=== PATIENT | female | born 1975 | race Caucasian/White ===

== ENCOUNTER 2022-04-06 20:06 | Inpatient (IN) | payer MEDICAID, OTHER, SELFPAY ==
--- NOTE | ~2022-04-06 | US_ITS ---
EXAMINATION: US ABDOMEN LIMITED CLINICAL INFORMATION: Right upper quadrant pain. COMPARISON: None TECHNIQUE: Real-time imaging of the right upper quadrant abdominal viscera. FINDINGS: PANCREAS: The head is obscured by overlying bowel gas. The body and tail appear unremarkable. No. Pancreatic inflammatory change. LIVER: There is somewhat heterogeneous and increased echogenicity consistent with hepatocellular disease and question cirrhosis. No focal hepatic lesion. There is no intrahepatic biliary duct dilatation seen. GALLBLADDER: Cholelithiasis is present without evidence of acute cholecystitis. No gallbladder wall thickening or pericholecystic fluid identified. No tenderness to palpation over the gallbladder was elicited. COMMON BILE DUCT: Common bile duct was not identified. RIGHT KIDNEY: Normal. No hydronephrosis. No renal calculi or focal parenchymal lesions. The kidney measures 14.5 cm in maximum dimension. FREE FLUID: None. US/US abdomen limited IMPRESSION: Cholelithiasis without evidence of acute cholecystitis. Hepatocellular disease.
[2022-04-06 20:23] VITALS: BP 187/82; PULSE 101; RESP 20; TEMP 36.6; O2SAT 98; BMI 34.3
[2022-04-06] MEDS: LORazepam 1 MG TABLET 2 MG PO (21:07)
--- NOTE | 2022-04-06 21:14 | PC.NURSE ---
Care team reports pt does not need a smart sheet completed.
[2022-04-06 21:21] LABS: Appearance Urine Clear; Color Urine Yellow; Glucose Urine UA Negative (Negative); Leukocyte Esterase Urine Negative (Negative); Nitrite Urine Negative (Negative); Specific Gravity - Urine <= 1.005 (1.005-1.025); UMIC TRIGGER UACC YES; Urine Blood Small (1+) (Negative); Urine Ketones Negative (Negative); Urine Protein Negative (Neg-Trace)
[2022-04-06 21:22] LABS: MANUAL DIFF FLAG NO
[2022-04-06 21:25] LABS: COVID-19 Test Negative (Negative); IDNOW Serial# BCCEAD1C
--- NOTE | 2022-04-06 21:31 | ED.PSYCH ---
HPI - Psych General Chief Complaint: Psychiatric Symptoms Stated Complaint: Alcohol detox Time Seen by Provider: 04/06/22 21:02 Source: patient Mode of arrival: ambulatory Limitations: no limitations History of Present Illness HPI Narrative: This is a 47-year-old female past medical history significant for hepatitis, anxiety, depression, alcohol use disorder presenting to the emergency department with concerns of feeling tired, agitated, suicidal with plan that she does not want to disclose, patient tells me she wants to sleep forever not wake up. She tells me she has been sleeping all day every day. She tells me she has been feeling this way for half of the year. Reports that she is homeless and is having significant life stressors including family issues she reports that her family does not speak to her, she does not have a support system in nobody did talk to. She tells me she was a heavy drinker before and now she is trying to cut down she is drinking 4-5 beers a day last drink was a few days ago. She denies any drugs or tobacco. She endorses visual hallucinations reports seeing shadows and she is also endorsing that she is hearing voices however unable to tell me exactly what they are saying. She tells me when she stops drinking she feels like she is shaking in agitated, no history of alcohol withdrawal seizures. Patient denies any medical complaints at this time. Related Data Allergies Allergy/AdvReac Type Severity Reaction Status Date / Time No Known Allergies Allergy Verified 04/06/22 20:28 Review of Systems Review of Systems: Constitutional : No Weight loss, No Fever, No Chills, No Fatigue, No Malaise, + tremors ENT/Mouth : No sore throat, No Rhinorrhea Eyes: No Eye Pain, No Swelling, No Redness Cardiovascular : No Chest Pain, No SOB, No Dyspnea on Exertion, No Orthopnea, No Edema, No Palpitations Respiratory : No Cough, No Sputum, No Wheezing Gastrointestinal : No Nausea, No Vomiting, No Diarrhea, No Constipation, No abdominal Pain, No Hematochezia, No Melena Genitourinary : No Dysuria, No Urinary Frequency, No Hematuria, Musculoskeletal : No joint pain, No Myalgias, No Joint Swelling Skin : No Skin Lesions, No rash Neuro : No Weakness, No Numbness, No Dizziness, No Headache Psych : + Anxiety/Panic, + Depression, + SI All other systems reviewed and are negative Yes all other systems are reviewed and are negative [facility] Past Medical History Attestation statement: The following information was validated with the patient. Source: old records reviewed and nursing notes reviewed Social History Social History Alcohol intake: current Alcohol intake frequency: 3 or more drinks per day Smoked in Last 30 Days: No Use of substances other than those prescribed or required for medical reasons: No Advance Directives: No Patient : No Physical Exam Vital Signs: Vital Signs: Last Vital Signs Temp 98 F 04/06/22 20:23 Pulse 101 H 04/06/22 20:23 Resp 20 04/06/22 20:23 BP 187/82 H 04/06/22 20:23 Pulse Ox 98 04/06/22 20:23 O2 Del Method 04/06/22 20:23 BMI result Body Mass Index 34.3 Vital signs significant for tachycardia, hypertension. Appearance: Alert.? Oriented X3.? No acute distress.? Patient appears anxious, diaphoretic. Head: Normocephalic, atraumatic, no step-offs or deformities Eyes: Pupils equal, round and reactive to light.? ENT: Pharynx normal.? Patient with tongue fasciculations. Neck: Normal inspection.? Neck supple.? CVS: Rapid rate normal rhythm likely sinus tachycardia.? Pulses normal.? Respiratory: No respiratory distress.? Breath sounds normal.? Abdomen: Soft and nontender.? Skin: Skin warm and dry.? Normal skin color.? Normal skin turgor.? Extremities: No lower extremity edema.? No calf ttp. 5/5 strength to bilateral upper and lower extremities. Asterixis noted to bilateral upper extremities. Back: No midline tenderness, no C-spine tenderness, full range of motion, no CVA tenderness bilaterally Neuro: Oriented X 3.? No motor deficit.? No sensory deficit. CN 2-12 intact Patient with a CIWA score of 14. Course Reevaluation(s) Reevaluation #1: CBC appears to be around normal limits, slight normocytic anemia. Patient is noted to have an elevated bilirubin 5.9 however no tenderness to palpation of abdomen on exam likely alcoholic liver disease or cirrhosis. Albumin low. Chemistry with no acute electrolyte abnormalities requiring intervention. UA clean without infection. Patient is noted to have a clean urine toxicology however ethanol level 372. Time: 22:01 Reevaluation #2: Spoke to hospitalist who will admit this patient for further evaluation and treatment. Time: 22:02 Medications Administered Discontinued Medications Generic Name Dose Route Start Last Admin Trade Name Esteban PRN Reason Stop Dose Admin Lorazepam 2 mg 04/06/22 21:02 04/06/22 21:07 Lorazepam 1 Mg Tablet PO 04/06/22 21:03 2 mg ONCE ONE Administration MDM - Psych MDM Narrative Medical decision making narrative: 2133 47-year-old female presents with anxiety, depression, suicidal ideation and alcohol withdrawal. Last drink few days ago. Physical examination patient appears anxious, diaphoretic, upper extremity asterixis, tongue fasciculations. Regular rate fast rhythm. Lungs clear. Abdomen soft nontender nondistended. Neuro nonfocal. Patient is noted to be hypertensive, tachycardic. Concerns for acute alcohol withdrawal with autonomic dysfunction. Given 2 mg of p.o. Ativan S immediately. Patient will be pulled from the behavioral pot and brought into the main emergency department as she will require phenobarbital for management of symptoms. Will obtain basic labs, CAMPBELL, ethanol level. Medical Records Attestation: I reviewed the patient's medical records. Lab Data Attestation: I reviewed the patient's lab results. Result diagrams: 04/06/22 21:18 04/06/22 21:18 Labs: Lab Results 04/06/22 04/06/22 04/06/22 Range/Units 21:05 21:05 21:05 WBC (4.8-10.8) X10*3/uL RBC (4.20-5.50) X10*6/uL Hgb (12.0-16.0) g/dl Hct (37.0-47.0) % MCV (80.0-98.0) fL MCH (27.0-33.0) pg MCHC (31.0-35.0) g/dl RDW (11.0-16.0) % Plt Count (160-400) X10*3/uL MPV (9.4-12.3) fL Immature Gran % (Auto) (0.0-0.4) % Neut % (Auto) (45-73) % Lymph % (Auto) (20-40) % [place] % (Auto) (2-11) % Eos % (Auto) (0-4) % Baso % (Auto) (0-2) % Lymph # (Auto) (1.2-4.9) X10*3/uL [place] # (Auto) (0.1-1.2) X10*3/uL Eos # (Auto) (0.0-0.4) X10*3/uL Baso # (Auto) (0.0-0.2) X10*3/uL Abs Immat Gran (auto) (0.00-0.03) X10*3/uL Absolute Neuts (auto) (2.0-8.3) x10*3/uL Absolute Nucleated RBC (0.0-0.012) X10*3/uL Nucleated RBC % (auto) (0.0-0.2) /100WBC Sodium (135-145) mmol/L Potassium (3.3-5.1) mmol/L Chloride (96-108) mmol/L Carbon Dioxide (22-29) mmol/L Anion Gap (12-20) BUN (9-16) mg/dL Creatinine (0.5-1.4) mg/dL Estim Creat Clear Calc Estimated GFR Random Glucose (60-115) mg/dL Calcium (8.4-10.2) mg/dL Magnesium (1.6-2.6) mg/dL Total Bilirubin (0.0-1.0) mg/dL AST (5-31) U/L ALT (0-31) U/L Alkaline Phosphatase (39-117) U/L Total Protein (6.5-8.0) g/dL Albumin (3.5-5.0) g/dL Urine Color Yellow Urine Appearance Clear Urine pH 7.0 (5.0-9.0) Ur Specific [place] <= 1.005 (1.005-1.025) Urine Protein Negative (Neg-Trace) mg/dL Urine Glucose (UA) Negative (Negative) mg/dL Urine Ketones Negative (Negative) mg/dL Urine Blood Small (1+) H (Negative) Urine Nitrite Negative (Negative) Ur Leukocyte Esterase Negative (Negative) Urine RBC 0-2 (0-2) /HPF Urine WBC 0-5 (0-5) /HPF Ur Squamous Epith Cells 0-2 (0-2) /HPF Urine Bacteria None Seen (None Seen) Hyaline Casts 0-2 (0-2) /LPF Urine Opiates Screen Not Detected (Not Detect) Urine Fentanyl Screen Not Detected (Not Detect) Ur Barbiturates Screen Not Detected (Not Detect) Ur Phencyclidine Scrn Not Detected (Not Detect) Ur Amphetamines Screen Not Detected (Not Detect) U Benzodiazepines Scrn Not Detected (Not Detect) Urine Cocaine Screen Not Detected (Not Detect) U Marijuana (THC) Screen Not Detected (Not Detect) Ethyl Alcohol mg/dL COVID-19 (SMITH) Negative (Negative) COVID-19 Clin Com See Note 04/06/22 04/06/22 Range/Units 21:18 21:18 WBC 5.8 (4.8-10.8) X10*3/uL RBC 3.52 L (4.20-5.50) X10*6/uL Hgb 11.5 L (12.0-16.0) g/dl Hct 34.4 L (37.0-47.0) % MCV 97.7 (80.0-98.0) fL MCH 32.7 (27.0-33.0) pg MCHC 33.4 (31.0-35.0) g/dl RDW 13.8 (11.0-16.0) % Plt Count 44 L (160-400) X10*3/uL MPV 12.2 (9.4-12.3) fL Immature Gran % (Auto) 0.3 (0.0-0.4) % Neut % (Auto) 55.0 (45-73) % Lymph % (Auto) 32.2 (20-40) % [place] % (Auto) 8.6 (2-11) % Eos % (Auto) 2.4 (0-4) % Baso % (Auto) 1.5 (0-2) % Lymph # (Auto) 1.9 (1.2-4.9) X10*3/uL [place] # (Auto) 0.5 (0.1-1.2) X10*3/uL Eos # (Auto) 0.1 (0.0-0.4) X10*3/uL Baso # (Auto) 0.1 (0.0-0.2) X10*3/uL Abs Immat Gran (auto) 0.02 (0.00-0.03) X10*3/uL Absolute Neuts (auto) 3.2 (2.0-8.3) x10*3/uL Absolute Nucleated RBC 0.000 (0.0-0.012) X10*3/uL Nucleated RBC % (auto) 0.0 (0.0-0.2) /100WBC Sodium 143 (135-145) mmol/L Potassium 3.4 (3.3-5.1) mmol/L Chloride 109 H (96-108) mmol/L Carbon Dioxide 25 (22-29) mmol/L Anion Gap 12 (12-20) BUN < 3 L (9-16) mg/dL Creatinine 0.54 (0.5-1.4) mg/dL Estim Creat Clear Calc 139.0 Estimated GFR > 60 Random Glucose 105 (60-115) mg/dL Calcium 7.5 L (8.4-10.2) mg/dL Magnesium 2.1 (1.6-2.6) mg/dL Total Bilirubin 5.9 H (0.0-1.0) mg/dL AST 97 H (5-31) U/L ALT 9 (0-31) U/L Alkaline Phosphatase 179 H (39-117) U/L Total Protein 7.9 (6.5-8.0) g/dL Albumin 3.0 L (3.5-5.0) g/dL Urine Color Urine Appearance Urine pH (5.0-9.0) Ur Specific [place] (1.005-1.025) Urine Protein (Neg-Trace) mg/dL Urine Glucose (UA) (Negative) mg/dL Urine Ketones (Negative) mg/dL Urine Blood (Negative) Urine Nitrite (Negative) Ur Leukocyte Esterase (Negative) Urine RBC (0-2) /HPF Urine WBC (0-5) /HPF Ur Squamous Epith Cells (0-2) /HPF Urine Bacteria (None Seen) Hyaline Casts (0-2) /LPF Urine Opiates Screen (Not Detect) Urine Fentanyl Screen (Not Detect) Ur Barbiturates Screen (Not Detect) Ur Phencyclidine Scrn (Not Detect) Ur Amphetamines Screen (Not Detect) U Benzodiazepines Scrn (Not Detect) Urine Cocaine Screen (Not Detect) U Marijuana (THC) Screen (Not Detect) Ethyl Alcohol 372 H* mg/dL COVID-19 (SMITH) (Negative) COVID-19 Clin Com Critical Care Time Critical Care Time Critical Care Time: No Discharge Plan Discharge Clinical Impression: Suicidal ideation, Depression, Acute anxiety, Alcohol withdrawal Patient Disposition: Still a Patient
[2022-04-06 21:34] LABS: Amphetamine Screen Urine Not Detected (Not Detect); Barbiturates, Urine Not Detected (Not Detect); Benzodiazepines Screen Urine Not Detected (Not Detect); Cannabinoid Screen Urine Not Detected (Not Detect); Cocaine Screen Urine Not Detected (Not Detect); Fentanyl, urine Not Detected (Not Detect); Opiate Screen Urine Not Detected (Not Detect); Phencyclidine Screen Urine Not Detected (Not Detect)
[2022-04-06 21:35] LABS: Bacteria Urine None Seen (None Seen); Hyaline Casts Urine 0-2 /LPF (0-2); RBC Urine 0-2 /HPF (0-2); Squamous Epithelial Cell Urine 0-2 /HPF (0-2); WBC Urine 0-5 /HPF (0-5)
[2022-04-06 21:35] LABS: Basophils Absolute Auto 0.1 X10*3/uL (0.0-0.2); Basophils Percent Auto 1.5 % (0-2); Eosinophils Absolute Auto 0.1 X10*3/uL (0.0-0.4); Eosinophils Percent Auto 2.4 % (0-4); Hematocrit 34.4 % (37.0-47.0); Hemoglobin 11.5 g/dl (12.0-16.0); Imm Gran Abs Auto 0.02 X10*3/uL (0.00-0.03); Imm Gran Pct Auto 0.3 % (0.0-0.4); Lymphocytes Absolute Auto 1.9 X10*3/uL (1.2-4.9); Lymphocytes Percent Auto 32.2 % (20-40); Mean Corpuscular HGB Conc 33.4 g/dl (31.0-35.0); Mean Corpuscular Hemoglobin 32.7 pg (27.0-33.0); Mean Corpuscular Volume 97.7 fL (80.0-98.0); Monocytes Absolute Auto 0.5 X10*3/uL (0.1-1.2); Monocytes Percent Auto 8.6 % (2-11); Neutrophils Absolute Auto 3.2 x10*3/uL (2.0-8.3); Red Blood Count 3.52 X10*6/uL (4.20-5.50); Red Cell Distribution Width 13.8 % (11.0-16.0); White Blood Count 5.8 X10*3/uL (4.8-10.8)
[2022-04-06 21:42] LABS: Alanine Aminotransferase 9 U/L (0-31); Alkaline Phosphatase 179 U/L (39-117); Anion Gap 12 (12-20); Aspartate Amino Transferase 97 U/L (5-31); Bilirubin Total 5.9 mg/dL (0.0-1.0); Blood Urea Nitrogen < 3 mg/dL (9-16); Calcium 7.5 mg/dL (8.4-10.2); Carbon Dioxide 25 mmol/L (22-29); Chloride 109 mmol/L (96-108); Estimated Glomerular Filt Rate > 60; Ethanol 372 mg/dL; Glucose Random 105 mg/dL (60-115); Magnesium 2.1 mg/dL (1.6-2.6); Potassium 3.4 mmol/L (3.3-5.1); Sodium 143 mmol/L (135-145); Total Protein 7.9 g/dL (6.5-8.0)
[2022-04-06 21:53] LABS: Mean Platelet Volume 12.2 fL (9.4-12.3); Platelet Count 44 X10*3/uL (160-400)
--- NOTE | 2022-04-06 22:01 | ECG_ITS ---
Test Reason : WITHDRAW Blood Pressure : / mmHG Vent. Rate : 079 BPM Atrial Rate : 079 BPM P-R Int : 168 ms QRS Dur : 102 ms QT Int : 434 ms P-R-T Axes : 058 012 024 degrees QTc Int : 497 ms Normal sinus rhythm Prolonged QT Borderline ECG No previous ECGs available Referred By: Mildred Chauhan Electronically Signed By:DINAA AVELAR MD
--- NOTE | 2022-04-06 22:08 | PM.IMHP ---
History of Present Illness Date of Service: 04/06/22 Chief Complaint: alcohol withdrawal, SI 47-year-old Canadian-speaking only female with past medical history of depression, GERD, presents the hospital with suicidal ideation and plan to kill herself with no attempt. Patient reports that she has been feeling very depressed with me family issues. She also has been using alcohol daily, about 6 beers a day. Patient initially was admitted for U evaluation but found to be withdrawing from alcohol therefore will be admitted to medical floor. Patient denies any chest pain, no abdominal pain, no nausea or vomiting, no diarrhea constipation, no urinary symptoms and no lower extremity edema. She reports her last drink was the night before. She reports a history of alcohol withdrawal with no withdrawal seizures. On arrival to the ED patient was documented to have a blood pressure of 187/82 with a heart rate of 101 She was also noted to have tongue fasciculation, asterixis Labs are significant for WBC count of 5.8, hemoglobin of 11.5, hematocrit 34.4, total bili of 5.9- 5.4 in February from records obtained from [facility],, AST of 97, ALT of 9, alk-phos of 179, ammonia of 60 albumin of 3.0, UA negative, UDS negative, alcohol level of 372, COVID-19 negative Abdominal ultrasound pending Review of Systems Review of Systems: Yes all other systems are reviewed and are negative [facility] Medical History (Updated 04/07/22 @ 05:55 by Kong Schwab MD) Alcohol abuse Depression with anxiety GERD (gastroesophageal reflux disease) Family History (Updated 04/07/22 @ 05:51 by Kong Schwab MD) Other No family history of coronary artery disease Surgical History (Updated 04/07/22 @ 05:52 by Kong Schwab MD) History of History of hernia repair Social History (Updated 04/07/22 @ 05:52 by Kong Schwab MD) Alcohol intake: current Alcohol intake frequency: 3 or more drinks per day Patient Tobacco Use Status: Former Tobacco user Smoked in Last 30 Days: No Use of substances other than those prescribed or required for medical reasons: No Advance Directives: No Patient : No Meds Allergies Allergy/AdvReac Type Severity Reaction Status Date / Time No Known Allergies Allergy Verified 04/06/22 20:28 Active Medications: Current Medications Pharmacy Consult (Consult Rx Perform Med Rec) 1 each MISCELLANE ONCE PRN PRN Reason: Consult order Pharmacy Consult (Consult Rx Etoh Phenob Im/Po) 1 each MISCELLANE ONCE PRN; Protocol PRN Reason: Consult order Home Medications Medication Instructions Recorded Confirmed Last Taken Type acamprosate 333 mg tablet,delayed 333 mg PO TID 04/06/22 04/06/22 Unknown History release duloxetine 60 mg capsule,delayed 1 cap PO DAILY 04/06/22 04/06/22 Unknown History release folic acid 1 mg tablet 1 tab PO DAILY 04/06/22 04/06/22 Unknown History multivitamin 1 tab PO DAILY 04/06/22 04/06/22 Unknown History naltrexone microspheres 380 mg 380 mg IM Q28D 04/06/22 04/06/22 Unknown History intramuscular suspension,extended release (Vivitrol) pantoprazole 40 mg tablet,delayed 1 tab PO BID 04/06/22 04/06/22 Unknown History release sucralfate 1 gram tablet 1 tab PO QID 04/06/22 04/06/22 Unknown History thiamine HCl (vitamin B1) 100 mg 100 mg PO DAILY 04/06/22 04/06/22 Unknown History tablet Physical Exam Vital Signs and Narrative: Vital Signs: Last Vital Signs Temp 98 F 04/06/22 20:23 Pulse 101 H 04/06/22 20:23 Resp 20 04/06/22 20:23 BP 187/82 H 04/06/22 20:23 Pulse Ox 98 04/06/22 20:23 O2 Del Method 04/06/22 20:23 BMI result Body Mass Index 34.3 Const: General: cooperative and no acute distress Orientation/consciousness: patient oriented x3 Eyes: Other: Scleral icterus Pupils: Equal, round and reactive pupils present Resp: Effort & Inspection: normal respiratory effort Auscultation: clear to auscultation bilaterally Cardio: Rate: regular rate Rhythm: regular rhythm GI: Other: Abdomen is not distended, soft, no tenderness or rebound Palpation (GI): Soft to palpation Auscultation: normal bowel sounds Skin: Other: Jaundice General skin exam: no rashes or lesions noted Neuro: Other: Alert oriented, cranial nerves 2-12 intact, strength 5/5, has tongue fasciculation and asterixis General: patient oriented x3 Cranial nerves: Yes Equal, round and reactive pupils present Cognition (Neuro): normal cognition Extrem: General: Yes normal to inspection and Yes no pedal edema Results Labs CBC and Chem 7: 04/07/22 05:34 04/06/22 21:18 Labs: Laboratory Results - last 24 hr 04/06/22 04/06/22 04/06/22 21:05 21:05 21:05 MCV MCH MCHC RDW Plt Count MPV Immature Gran % (Auto) Neut % (Auto) Lymph % (Auto) [place] % (Auto) Eos % (Auto) Baso % (Auto) Lymph # (Auto) [place] # (Auto) Eos # (Auto) Baso # (Auto) Abs Immat Gran (auto) Absolute Neuts (auto) Absolute Nucleated RBC Nucleated RBC % (auto) Anion Gap Estim Creat Clear Calc Estimated GFR Random Glucose Calcium Magnesium Total Bilirubin AST ALT Alkaline Phosphatase Total Protein Albumin Urine Color Yellow Urine Appearance Clear Urine pH 7.0 Ur Specific [place] <= 1.005 Urine Protein Negative Urine Glucose (UA) Negative Urine Ketones Negative Urine Blood Small (1+) H Urine Nitrite Negative Ur Leukocyte Esterase Negative Urine RBC 0-2 Urine WBC 0-5 Ur Squamous Epith Cells 0-2 Urine Bacteria None Seen Hyaline Casts 0-2 Urine Opiates Screen Not Detected Urine Fentanyl Screen Not Detected Ur Barbiturates Screen Not Detected Ur Phencyclidine Scrn Not Detected Ur Amphetamines Screen Not Detected U Benzodiazepines Scrn Not Detected Urine Cocaine Screen Not Detected U Marijuana (THC) Screen Not Detected Ethyl Alcohol COVID-19 (SMITH) Negative COVID-19 Clin Com See Note 04/06/22 04/06/22 21:18 21:18 MCV 97.7 MCH 32.7 MCHC 33.4 RDW 13.8 Plt Count 44 L MPV 12.2 Immature Gran % (Auto) 0.3 Neut % (Auto) 55.0 Lymph % (Auto) 32.2 [place] % (Auto) 8.6 Eos % (Auto) 2.4 Baso % (Auto) 1.5 Lymph # (Auto) 1.9 [place] # (Auto) 0.5 Eos # (Auto) 0.1 Baso # (Auto) 0.1 Abs Immat Gran (auto) 0.02 Absolute Neuts (auto) 3.2 Absolute Nucleated RBC 0.000 Nucleated RBC % (auto) 0.0 Anion Gap 12 Estim Creat Clear Calc 139.0 Estimated GFR > 60 Random Glucose 105 Calcium 7.5 L Magnesium 2.1 Total Bilirubin 5.9 H AST 97 H ALT 9 Alkaline Phosphatase 179 H Total Protein 7.9 Albumin 3.0 L Urine Color Urine Appearance Urine pH Ur Specific [place] Urine Protein Urine Glucose (UA) Urine Ketones Urine Blood Urine Nitrite Ur Leukocyte Esterase Urine RBC Urine WBC Ur Squamous Epith Cells Urine Bacteria Hyaline Casts Urine Opiates Screen Urine Fentanyl Screen Ur Barbiturates Screen Ur Phencyclidine Scrn Ur Amphetamines Screen U Benzodiazepines Scrn Urine Cocaine Screen U Marijuana (THC) Screen Ethyl Alcohol 372 H* COVID-19 (SMITH) COVID-19 Clin Com Assessment and Plan (1) Alcohol withdrawal: Status: Acute (2) Depression: Status: Acute (3) Suicidal ideation: Status: Acute (4) Hyperbilirubinemia: Status: Acute (5) Thrombocytopenia: Status: Acute Plan 39-year-old female with past medical history of alcohol abuse, presents to the hospital with complaints of suicidal ideation found to have alcohol withdrawal # alcohol abuse with withdrawal - has a high CIWA score, asterixis, tongue fasciculation - was treated with phenobarb protocol, - thiamine and folic acid # suicidal ideation/severe depression - suicide watch - psych consulted # hyperbilirubinemia - likely secondary to alcohol abuse - will obtain abdominal ultrasound to evaluate for kidney - PT INR to evaluate for any coagulopathy - follow LFTs # thrombocytopenia - likely secondary to underlying liver disease in the setting of alcohol abuse - no acute bleed - follow platelet count - monitor for acute spontaneous bleed DVT prophylaxis: SCDs Given patient's alcohol abuse and withdrawal, also requirement for further workup of liver disease patient require a minimum 2 night inpatient hospital stay for further management and evaluation Quality Stroke Does the patient have a stroke diagnosis?: No VTE Prior VTE?: No VTE Risk Level:: Medical - moderate - high VTE Device Contraindication: Treatment Not Indicated VTE Drug Contraindication: N/A - Med Ordered
--- NOTE | 2022-04-06 22:14 | PHA.MEDREC ---
Pharmacy Consult ? Medication Reconciliation Pharmacy has completed the medication reconciliation. Pt at this time unable to give a clear history, states that she has not taken any oral meds since jan 13 2022. Med list obtained from [facility]
--- NOTE | 2022-04-06 22:15 | MHC.CARE ---
Pt was evaluated by [facility] in the community. Pt was an inpatient bedsearch, however is now medically admitted. Once pt is medically cleared, please consult the CARE Team
[2022-04-06 22:39] VITALS: BP 110/57; PULSE 79; RESP 15; TEMP 37.1; O2SAT 97
[2022-04-06] MEDS: PHENobarbitaL sodium 130 MG/ML IM ONCE 260 MG IM (22:52)
[2022-04-06] MEDS: Lactated Ringers 1,000 ML 100 ML IVCONT (22:53)
[2022-04-06] MEDS: Enoxaparin Sodium 40 MG/0.4 ML SYRINGE SUBCUT (22:56)
[2022-04-07 00:28] LABS: Ammonia 60 umol/L (13-55)
[2022-04-07] MEDS: PHENobarbitaL sodium 130 MG/ML VIAL IM Q3Hx2 197 MG IM ×2 (01:58→04:47)
[2022-04-07 05:39] LABS: Lymphocytes Percent Auto 33.3 % (20-40); Mean Corpuscular HGB Conc 32.7 g/dl (31.0-35.0); PLT CLUMP 1; Red Cell Distribution Width 13.8 % (11.0-16.0); SCAN SMEAR FLAG 1
--- NOTE | 2022-04-07 05:39 | PC.NURSE ---
Pt found with some blood in her mouth in the morning. Pt states this happens every morning and that her doctor said it would happen if she continues to drink alcohol. Bleeding is controlled at this time. Continuing to monitor
[2022-04-07 05:41] LABS: Basophils Absolute Auto 0.1 X10*3/uL (0.0-0.2); Basophils Percent Auto 1.8 % (0-2); Eosinophils Absolute Auto 0.2 X10*3/uL (0.0-0.4); Eosinophils Percent Auto 4.4 % (0-4); Hematocrit 29.4 % (37.0-47.0); Hemoglobin 9.6 g/dl (12.0-16.0); Lymphocytes Absolute Auto 1.5 X10*3/uL (1.2-4.9); Mean Corpuscular Hemoglobin 32.1 pg (27.0-33.0); Mean Corpuscular Volume 98.3 fL (80.0-98.0); Mean Platelet Volume 11.7 fL (9.4-12.3); Monocytes Absolute Auto 0.4 X10*3/uL (0.1-1.2); Monocytes Percent Auto 8.8 % (2-11); Neutrophils Absolute Auto 2.3 x10*3/uL (2.0-8.3); Neutrophils Percent Auto 51.7 % (45-73); Red Blood Count 2.99 X10*6/uL (4.20-5.50); White Blood Count 4.5 X10*3/uL (4.8-10.8)
[2022-04-07 05:42] LABS: MANUAL DIFF FLAG NO; Platelet Count 34 X10*3/uL (160-400)
[2022-04-07 06:00] VITALS: BP 125/71; PULSE 87; RESP 16; O2SAT 94
[2022-04-07 06:05] LABS: Anion Gap 10 (12-20); Blood Urea Nitrogen 3 mg/dL (9-16); Calcium 7.1 mg/dL (8.4-10.2); Carbon Dioxide 24 mmol/L (22-29); Chloride 111 mmol/L (96-108); Creatinine Clr Calc Pharmacy 147.1; Estimated Glomerular Filt Rate > 60; Glucose Random 91 mg/dL (60-115); Potassium 3.2 mmol/L (3.3-5.1); Sodium 142 mmol/L (135-145)
[2022-04-07 06:29] LABS: INTERNATIONAL NORM RATIO 1.8 (0.9-1.1); Prothrombin Time 21.7 SEC (10.0-13.1)
[2022-04-07] MEDS: Folic Acid 1 MG TABLET PO (07:59)
[2022-04-07] MEDS: Potassium Chloride ER 20 MEQ TAB.ER.PRT 40 MEQ PO (07:59)
[2022-04-07] MEDS: Acetaminophen 325 MG TABLET 650 MG PO (07:59)
[2022-04-07] MEDS: Thiamine HCL 100 MG TABLET PO (07:59)
[2022-04-07] MEDS: Sucralfate 1 GM TABLET PO ×3 (08:06→22:05)
[2022-04-07] MEDS: DULoxetine HCl 60 MG CAPSULE.DR PO (08:06)
[2022-04-07] MEDS: Acamprosate Calcium 333 MG TABLET.DR PO ×3 (08:06→22:05)
[2022-04-07] MEDS: Lactated Ringers 1,000 ML 100 ML IVCONT ×2 (08:14→23:55)
--- NOTE | 2022-04-07 08:37 | MHC.CM.PN ---
Patient is admitted to the medical floor with ETOH Withdrawal; once medically cleared for dc, Care Team should be consulted r/t IPLOC bed search secondary to SI. Patient is also homeless. CM has initiated and will follow for dc planning.
--- NOTE | 2022-04-07 09:24 | PC.NURSE ---
awoke to voice and tactile stimuli, resting very soundly when left alone. took ordered po medications without issue, able to sit up and drink on own. no complaints offered during interaction. iv running patent w ordered LR. sitter in place for safety, awaiting inpt bed assignment.
--- NOTE | 2022-04-07 10:04 | P.PNIM_ITS ---
Subjective Subjective Date of Service: 04/07/22 Interval History: being followed for alcohol abuse and withdrawal, and also for suicidal ideation, at present patient feeling better feeling less shaky, denies nausea vomiting, tolerated breakfast, complaining of epigastric pain no other acute issues since admission Review of Systems General no headache no dizziness no fever chills. CVS no chest pain, no palpitation. Respiratory no cough, no sob. Gastrointestinal no nausea, no vomiting, no abdominal pain Review of Systems: Yes all other systems are reviewed and are negative Physical Exam Vital Signs: Vital Signs: Last Vital Signs Temp 98.7 F 04/06/22 22:39 Pulse 87 04/07/22 06:00 Resp 16 04/07/22 06:00 BP 125/71 04/07/22 06:00 Pulse Ox 94 04/07/22 06:00 O2 Del Method 04/07/22 06:00 BMI result Body Mass Index 34.3 Const: Other: General awake alert x3,in no acute distress. Neck supple no JVD. CVS regular rate rhythm, Respiratory lungs clear to auscultation, no respiratory distress, no wheeze, no rhonchi. Gastrointestinal abdomen soft, mild epigastric tenderness, bowel sounds audible, no guarding , no rigidity. Extremities no edema. Neuro nonfocal , noted hand tremors, speech clear. Skin no rash Objective Data Active Medications Acamprosate (Acamprosate Calcium 333 Mg Tablet.) 333 mg PO TID [facility] Last Admin: 04/07/22 08:06 Dose: 333 mg Documented By: NAM Acetaminophen (Acetaminophen 325 Mg Tablet) 650 mg PO Q6H PRN PRN Reason: Pain, Mild (Pain Scale 1-3) Last Admin: 04/07/22 07:59 Dose: 650 mg Documented By: NAM Docusate Sodium (Docusate Sodium 100 Mg Capsule) 100 mg PO DAILY PRN PRN Reason: Constipation Duloxetine HCl (Duloxetine Hcl 60 Mg Capsule.) 60 mg PO DAILY [facility] Last Admin: 04/07/22 08:06 Dose: 60 mg Documented By: NAM Folic Acid (Folic Acid 1 Mg Tablet) 1 mg PO DAILY [facility] Last Admin: 04/07/22 07:59 Dose: 1 mg Documented By: NAM Lactated Ringer's (Lr) 1,000 mls @ 100 mls/hr IVCONT .Q10H [facility] Last Admin: 04/07/22 08:14 Dose: 100 mls/hr Documented By: NAM Omeprazole (Omeprazole 40 Mg Capsule.Dr) 40 mg PO BID@0630,1630 [facility] Ondansetron HCl (Ondansetron Hcl 4 Mg/2 Ml Vial) 4 mg IVPUSH Q8H PRN PRN Reason: Nausea and Vomiting Pharmacy Consult (Consult Rx Perform Med Rec) 1 each MISCELLANE ONCE PRN PRN Reason: Consult order Pharmacy Consult (Consult Rx Etoh Phenob Im/Po) 1 each MISCELLANE ONCE PRN; Protocol PRN Reason: Consult order Phenobarbital (Phenobarbital 15 Mg Tablet) 45 mg PO BID [facility]; Protocol Stop: 04/09/22 09:01 Phenobarbital (Phenobarbital 15 Mg Tablet) 15 mg PO BID [facility]; Protocol Stop: 04/11/22 09:01 Phenobarbital (Phenobarbital 15 Mg Tablet) 15 mg PO DAILY [facility]; Protocol Stop: 04/13/22 09:01 Sodium Chloride (0.9 % Sodium Chloride Flush 3 Ml Syringe) 3 ml IVFLUSH QSHIFT [facility] Last Admin: 04/07/22 06:49 Dose: Not Given Documented By: NAM Non-Admin Reason: Med Not Available Sucralfate (Sucralfate 1 Gm Tablet) 1 gm PO QID [facility] Last Admin: 04/07/22 08:06 Dose: 1 gm Documented By: NAM Thiamine HCl (Thiamine Hcl 100 Mg Tablet) 100 mg PO DAILY [facility] Last Admin: 04/07/22 07:59 Dose: 100 mg Documented By: NAM Labs CBC & Chem 7: 04/07/22 05:34 04/07/22 05:34 Labs: Laboratory Results - last 24 hr 04/06/22 04/06/22 04/06/22 21:05 21:05 21:05 MCV MCH MCHC RDW Plt Count MPV Immature Gran % (Auto) Neut % (Auto) Lymph % (Auto) [place] % (Auto) Eos % (Auto) Baso % (Auto) Lymph # (Auto) [place] # (Auto) Eos # (Auto) Baso # (Auto) Abs Immat Gran (auto) Absolute Neuts (auto) Absolute Nucleated RBC Nucleated RBC % (auto) PT INR Anion Gap Estim Creat Clear Calc Estimated GFR Random Glucose Calcium Magnesium Total Bilirubin AST ALT Alkaline Phosphatase Ammonia Total Protein Albumin Urine Color Yellow Urine Appearance Clear Urine pH 7.0 Ur Specific [place] <= 1.005 Urine Protein Negative Urine Glucose (UA) Negative Urine Ketones Negative Urine Blood Small (1+) H Urine Nitrite Negative Ur Leukocyte Esterase Negative Urine RBC 0-2 Urine WBC 0-5 Ur Squamous Epith Cells 0-2 Urine Bacteria None Seen Hyaline Casts 0-2 Urine Opiates Screen Not Detected Urine Fentanyl Screen Not Detected Ur Barbiturates Screen Not Detected Ur Phencyclidine Scrn Not Detected Ur Amphetamines Screen Not Detected U Benzodiazepines Scrn Not Detected Urine Cocaine Screen Not Detected U Marijuana (THC) Screen Not Detected Ethyl Alcohol COVID-19 (SMITH) Negative COVID-19 [employer] Com See Note 04/06/22 04/06/22 04/07/22 21:18 21:18 00:06 MCV 97.7 MCH 32.7 MCHC 33.4 RDW 13.8 Plt Count 44 L MPV 12.2 Immature Gran % (Auto) 0.3 Neut % (Auto) 55.0 Lymph % (Auto) 32.2 [place] % (Auto) 8.6 Eos % (Auto) 2.4 Baso % (Auto) 1.5 Lymph # (Auto) 1.9 [place] # (Auto) 0.5 Eos # (Auto) 0.1 Baso # (Auto) 0.1 Abs Immat Gran (auto) 0.02 Absolute Neuts (auto) 3.2 Absolute Nucleated RBC 0.000 Nucleated RBC % (auto) 0.0 PT INR Anion Gap 12 Estim Creat Clear Calc 139.0 Estimated GFR > 60 Random Glucose 105 Calcium 7.5 L Magnesium 2.1 Total Bilirubin 5.9 H AST 97 H ALT 9 Alkaline Phosphatase 179 H Ammonia 60 H Total Protein 7.9 Albumin 3.0 L Urine Color Urine Appearance Urine pH Ur Specific [place] Urine Protein Urine Glucose (UA) Urine Ketones Urine Blood Urine Nitrite Ur Leukocyte Esterase Urine RBC Urine WBC Ur Squamous Epith Cells Urine Bacteria Hyaline Casts Urine Opiates Screen Urine Fentanyl Screen Ur Barbiturates Screen Ur Phencyclidine Scrn Ur Amphetamines Screen U Benzodiazepines Scrn Urine Cocaine Screen U Marijuana (THC) Screen Ethyl Alcohol 372 H* COVID-19 (SMITH) COVID-19 Procam TV Com 04/07/22 04/07/22 04/07/22 05:34 05:34 06:12 MCV 98.3 H MCH 32.1 MCHC 32.7 RDW 13.8 Plt Count 34 L MPV 11.7 Immature Gran % (Auto) 0.0 Neut % (Auto) 51.7 Lymph % (Auto) 33.3 [place] % (Auto) 8.8 Eos % (Auto) 4.4 H Baso % (Auto) 1.8 Lymph # (Auto) 1.5 [place] # (Auto) 0.4 Eos # (Auto) 0.2 Baso # (Auto) 0.1 Abs Immat Gran (auto) 0.00 Absolute Neuts (auto) 2.3 Absolute Nucleated RBC 0.000 Nucleated RBC % (auto) 0.0 PT 21.7 H INR 1.8 H Anion Gap 10 L Estim Creat Clear Calc 147.1 Estimated GFR > 60 Random Glucose 91 Calcium 7.1 L Magnesium Total Bilirubin AST ALT Alkaline Phosphatase Ammonia Total Protein Albumin Urine Color Urine Appearance Urine pH Ur Specific [place] Urine Protein Urine Glucose (UA) Urine Ketones Urine Blood Urine Nitrite Ur Leukocyte Esterase Urine RBC Urine WBC Ur Squamous Epith Cells Urine Bacteria Hyaline Casts Urine Opiates Screen Urine Fentanyl Screen Ur Barbiturates Screen Ur Phencyclidine Scrn Ur Amphetamines Screen U Benzodiazepines Scrn Urine Cocaine Screen U Marijuana (THC) Screen Ethyl Alcohol COVID-19 (SMITH) COVID-19 Clin Com Assessment and Plan (1) Thrombocytopenia: Status: Acute (2) Hyperbilirubinemia: Status: Acute (3) Suicidal ideation: Status: Acute (4) Depression: Status: Acute (5) Acute anxiety: Status: Acute (6) Alcohol withdrawal: Status: Acute Plan 39-year-old female with past medical history of alcohol abuse, presents to the hospital with complaints of suicidal ideation found to have alcohol withdrawal # alcohol abuse with withdrawal - on admission noted to have asterixis and tongue fasciculation, now resolved, continue to have hand tremors - continue phenobarb protocol, thiamine and folic acid will obtain care team consult # suicidal ideation/severe depression - continue sitter, resumed home medications Cymbalta - psych consulted/ N when medically stable # hyperbilirubinemia - likely secondary to alcohol abuse, no nausea no vomiting will follow-up abdominal ultrasound - will obtain abdominal ultrasound to evaluate for kidney - INR 1.8/ albumin 3.0 likely due to alcoholic hepatitis and chronic liver disease - follow LFTs # thrombocytopenia - likely secondary to underlying liver disease in the setting of alcohol abuse - no acute bleed, follow platelet count # alcoholic gastritis complaining of epigastric pain continue PPI b.i.d and sucralfate out strongly recommend to abstain from alcohol no GI bleed noted follow CBC. # chronic normocytic anemia # hypokalemia will replete and follow BMP DVT prophylaxis: SCDs Given patient's alcohol abuse and withdrawal, also requirement for further workup of liver disease patient require a minimum 2 night inpatient hospital stay for further management and evaluation Quality Stroke Does the patient have a stroke diagnosis?: No VTE Prior VTE?: No VTE Risk Level:: Medical - moderate - high VTE Device Contraindication: Treatment Not Indicated VTE Drug Contraindication: N/A - Med Ordered
--- NOTE | 2022-04-07 10:07 | PC.NURSE ---
iv in right ac patent, but giving iv pump difficulties. 22g placed in r hand patent and flowing without issue, patient tolerated well.
[2022-04-07 13:23] VITALS: BP 123/59; PULSE 87; RESP 16; TEMP 37.4; O2SAT 96
[2022-04-07 16:00] VITALS: BP 128/58; PULSE 88; RESP 18; TEMP 36.9; O2SAT 96
--- NOTE | 2022-04-07 17:16 | P.CNPS_ITS ---
History of Present Illness Date of Service: 04/07/22 Chief Complaint: alcohol withdrawal, si Reason for Consult: disposition, medication Requesting physician: Kong Schwab Discussed with referring provider: Yes Sources of Information: patient interviewed, chart reviewed and crisis/core team assessment reviewed HPI Narrative: Deirdre is a 47 y.o. female with past medical history of MDD recurrent, GERD, and AUD. She presented to [facility] on 04/06/22 due to suicidal ideation, however did not want to disclose her plan, told ED provider she wanted to sleep forever and not wake up. Reported sx of hypersomnia, lack of social supports, and loneliness. Had been drinking daily 4-6 beers a day, last drink was a few days ago. She was admitted to [facility] for alcohol withdrawal, on phenobarb protocol, workup for liver disease. I spoke with pt this evening. She denies having any OP psych services, however says she does not remember the last time she didn?t feel depressed. Has been on Cymbalta 60 mg and Wellbutrin, however stopped taking the Wellbutrin due to lack of efficacy. She is sleeping too much, sleeps in the day. Reports lack of motivation, loss of interest in things. 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 Denies having family support, has one friend. Only drinks boost or ensure, not eating well. S ays she drinks daily because when she drinks she doesn?t feel anything, wants to numb herself. Unable to recall the last time she was able to abstain from alcohol. Denies anger. Denies anxiety. No psychotic sx. Denies SI/SIB. Denies hx of suicide attempts. Medical Evaluation Reviewed: Yes [facility] Medical History (Updated 04/08/22 @ 00:46 by Brittnee Yarbrough NP) Alcohol abuse Depression with anxiety GERD (gastroesophageal reflux disease) Surgical History (Updated 04/07/22 @ 05:52 by Kong Schwab MD) History of History of hernia repair Diagnostics Vital Signs (24Hr): Vital Signs - 24 hr 04/06/22 20:23 04/06/22 22:39 04/07/22 06:00 Temperature 98 F 98.7 F Pulse Rate 101 H 79 87 Respiratory Rate 20 15 16 Blood Pressure 187/82 H 110/57 L 125/71 Pulse Oximetry 98 97 94 Oxygen Delivery Method Room Air Room Air Room Air 04/07/22 13:23 04/07/22 16:00 Temperature 99.3 F 98.5 F Pulse Rate 87 88 Respiratory Rate 16 18 Blood Pressure 123/59 L 128/58 L Pulse Oximetry 96 96 Oxygen Delivery Method Room Air Room Air BMI result Body Mass Index 34.3 Labs Results: 04/07/22 05:34 04/07/22 05:34 Labs: Laboratory Results - last 48 hr 04/06/22 04/06/22 04/06/22 21:05 21:05 21:05 WBC RBC Hgb Hct MCV MCH MCHC RDW Plt Count MPV Immature Gran % (Auto) Neut % (Auto) Lymph % (Auto) [place] % (Auto) Eos % (Auto) Baso % (Auto) Lymph # (Auto) [place] # (Auto) Eos # (Auto) Baso # (Auto) Abs Immat Gran (auto) Absolute Neuts (auto) Absolute Nucleated RBC Nucleated RBC % (auto) PT INR Sodium Potassium Chloride Carbon Dioxide Anion Gap BUN Creatinine Estim Creat Clear Calc Estimated GFR Random Glucose Calcium Magnesium Total Bilirubin AST ALT Alkaline Phosphatase Ammonia Total Protein Albumin Urine Color Yellow Urine Appearance Clear Urine pH 7.0 Ur Specific [place] <= 1.005 Urine Protein Negative Urine Glucose (UA) Negative Urine Ketones Negative Urine Blood Small (1+) H Urine Nitrite Negative Ur Leukocyte Esterase Negative Urine RBC 0-2 Urine WBC 0-5 Ur Squamous Epith Cells 0-2 Urine Bacteria None Seen Hyaline Casts 0-2 Urine Opiates Screen Not Detected Urine Fentanyl Screen Not Detected Ur Barbiturates Screen Not Detected Ur Phencyclidine Scrn Not Detected Ur Amphetamines Screen Not Detected U Benzodiazepines Scrn Not Detected Urine Cocaine Screen Not Detected U Marijuana (THC) Screen Not Detected Ethyl Alcohol COVID-19 (SMITH) Negative COVID-19 Clin Com See Note 04/06/22 04/06/22 04/07/22 21:18 21:18 00:06 WBC 5.8 RBC 3.52 L Hgb 11.5 L Hct 34.4 L MCV 97.7 MCH 32.7 MCHC 33.4 RDW 13.8 Plt Count 44 L MPV 12.2 Immature Gran % (Auto) 0.3 Neut % (Auto) 55.0 Lymph % (Auto) 32.2 [place] % (Auto) 8.6 Eos % (Auto) 2.4 Baso % (Auto) 1.5 Lymph # (Auto) 1.9 [place] # (Auto) 0.5 Eos # (Auto) 0.1 Baso # (Auto) 0.1 Abs Immat Gran (auto) 0.02 Absolute Neuts (auto) 3.2 Absolute Nucleated RBC 0.000 Nucleated RBC % (auto) 0.0 PT INR Sodium 143 Potassium 3.4 Chloride 109 H Carbon Dioxide 25 Anion Gap 12 BUN < 3 L Creatinine 0.54 Estim Creat Clear Calc 139.0 Estimated GFR > 60 Random Glucose 105 Calcium 7.5 L Magnesium 2.1 Total Bilirubin 5.9 H AST 97 H ALT 9 Alkaline Phosphatase 179 H Ammonia 60 H Total Protein 7.9 Albumin 3.0 L Urine Color Urine Appearance Urine pH Ur Specific [place] Urine Protein Urine Glucose (UA) Urine Ketones Urine Blood Urine Nitrite Ur Leukocyte Esterase Urine RBC Urine WBC Ur Squamous Epith Cells Urine Bacteria Hyaline Casts Urine Opiates Screen Urine Fentanyl Screen Ur Barbiturates Screen Ur Phencyclidine Scrn Ur Amphetamines Screen U Benzodiazepines Scrn Urine Cocaine Screen U Marijuana (THC) Screen Ethyl Alcohol 372 H* COVID-19 (SMITH) COVID-19 Clin Com 04/07/22 04/07/22 04/07/22 05:34 05:34 06:12 WBC 4.5 L RBC 2.99 L Hgb 9.6 L Hct 29.4 L MCV 98.3 H MCH 32.1 MCHC 32.7 RDW 13.8 Plt Count 34 L MPV 11.7 Immature Gran % (Auto) 0.0 Neut % (Auto) 51.7 Lymph % (Auto) 33.3 [place] % (Auto) 8.8 Eos % (Auto) 4.4 H Baso % (Auto) 1.8 Lymph # (Auto) 1.5 [place] # (Auto) 0.4 Eos # (Auto) 0.2 Baso # (Auto) 0.1 Abs Immat Gran (auto) 0.00 Absolute Neuts (auto) 2.3 Absolute Nucleated RBC 0.000 Nucleated RBC % (auto) 0.0 PT 21.7 H INR 1.8 H Sodium 142 Potassium 3.2 L Chloride 111 H Carbon Dioxide 24 Anion Gap 10 L BUN 3 L Creatinine 0.51 Estim Creat Clear Calc 147.1 Estimated GFR > 60 Random Glucose 91 Calcium 7.1 L Magnesium Total Bilirubin AST ALT Alkaline Phosphatase Ammonia Total Protein Albumin Urine Color Urine Appearance Urine pH Ur Specific [place] Urine Protein Urine Glucose (UA) Urine Ketones Urine Blood Urine Nitrite Ur Leukocyte Esterase Urine RBC Urine WBC Ur Squamous Epith Cells Urine Bacteria Hyaline Casts Urine Opiates Screen Urine Fentanyl Screen Ur Barbiturates Screen Ur Phencyclidine Scrn Ur Amphetamines Screen U Benzodiazepines Scrn Urine Cocaine Screen U Marijuana (THC) Screen Ethyl Alcohol COVID-19 (SMITH) COVID-19 Clin Com Imaging Radiology Impressions: ITS Impressions Abdomen Ultrasound 04/07/22 09:13 IMPRESSION: Cholelithiasis without evidence of acute cholecystitis. Hepatocellular disease. Mental Status Exam Mental Status Exam Narrative: A&O. Overweight, in hospital attire, unkempt. Poor eye contact, attentive. No Tics or Tremors. No abnormal involuntary movements. Calm, however not overly engaged. Non-pressured speech, spontaneous with regular rate and rhythm, normal volume and prosody. No prolonged speech latency or dysarthria. Mood is ?depressed,? affect is dysphoric. Denies SI/SIB/HI upon inquiry. Denies A/VH or delusional thought content. Thoughts are slowed. No known cognitive or memory impairment. Insight/ Judgment fair and adequate. Medications Medications Current Medications Acamprosate (Acamprosate Calcium 333 Mg Tablet.) 333 mg PO TID [facility] Last Admin: 04/07/22 08:06 Dose: 333 mg Acetaminophen (Acetaminophen 325 Mg Tablet) 650 mg PO Q6H PRN PRN Reason: Pain, Mild (Pain Scale 1-3) Last Admin: 04/07/22 07:59 Dose: 650 mg Docusate Sodium (Docusate Sodium 100 Mg Capsule) 100 mg PO DAILY PRN PRN Reason: Constipation Duloxetine HCl (Duloxetine Hcl 60 Mg Capsule.) 60 mg PO DAILY [facility] Last Admin: 04/07/22 08:06 Dose: 60 mg Folic Acid (Folic Acid 1 Mg Tablet) 1 mg PO DAILY [facility] Last Admin: 04/07/22 07:59 Dose: 1 mg Lactated Ringer's (Lr) 1,000 mls @ 100 mls/hr IVCONT .Q10H [facility] Last Admin: 04/07/22 08:14 Dose: 100 mls/hr Omeprazole (Omeprazole 40 Mg Capsule.) 40 mg PO BID@0630,1630 [facility] Ondansetron HCl (Ondansetron Hcl 4 Mg/2 Ml Vial) 4 mg IVPUSH Q8H PRN PRN Reason: Nausea and Vomiting Pharmacy Consult (Consult Rx Perform Med Rec) 1 each MISCELLANE ONCE PRN PRN Reason: Consult order Pharmacy Consult (Consult Rx Etoh Phenob Im/Po) 1 each MISCELLANE ONCE PRN; Protocol PRN Reason: Consult order Phenobarbital (Phenobarbital 15 Mg Tablet) 45 mg PO BID [facility]; Protocol Stop: 04/09/22 09:01 Phenobarbital (Phenobarbital 15 Mg Tablet) 15 mg PO BID [facility]; Protocol Stop: 04/11/22 09:01 Phenobarbital (Phenobarbital 15 Mg Tablet) 15 mg PO DAILY [facility]; Protocol Stop: 04/13/22 09:01 Phytonadione (Phytonadione (Vit K1) Oral 10 Mg/Ml Ampul) 5 mg PO DAILY [facility] Stop: 04/10/22 09:01 Sodium Chloride (0.9 % Sodium Chloride Flush 3 Ml Syringe) 3 ml IVFLUSH QSHIFT [facility] Last Admin: 04/07/22 06:49 Dose: Not Given Sucralfate (Sucralfate 1 Gm Tablet) 1 gm PO QID [facility] Last Admin: 04/07/22 14:43 Dose: Not Given Thiamine HCl (Thiamine Hcl 100 Mg Tablet) 100 mg PO DAILY [facility] Last Admin: 04/07/22 07:59 Dose: 100 mg Allergies Allergies Allergy/AdvReac Type Severity Reaction Status Date / Time No Known Allergies Allergy Verified 04/07/22 13:26 Assessment & Plan Assessment & Plan (1) Alcohol withdrawal: Status: Acute Code(s): F10.939 - Alcohol use, unspecified with withdrawal, unspecified (2) MDD (major depressive disorder), recurrent severe, without psychosis: Status: Acute Code(s): F33.2 - Major depressive disorder, recurrent severe without psychotic features Plan Plan: Will not re-start Wellbutrin XL, as pt did not feel it was effective, lowers seizure threshold and pt currently in alcohol withdrawal. Will continue Cymbalta 60 mg. At this time, pt would benefit from referral to OP psych services, as she is lonely, not engaged in therapy. She would also benefit from recovery services to sustain sobriety. I would not do medication changes until pt has some of these other measures in place. Would recommend evaluation by CARE team for dispo to inpatient psych, as she is denying SI/SIB, however may still benefit from higher level of care for further stabilization for co-occurring illness. Thank you for this consultation. If you have any questions or concerns, please do not hesitate to contact psychiatry service. I spent minutes with the patient and/or on the patient floor today, greater than?50% of which was spent counseling/coordinating care. Patient educated on: diagnosis, medication risk/benefits and therapeutic strategies
[2022-04-07] MEDS: Omeprazole 40 MG CAPSULE.DR PO (17:18)
--- NOTE | 2022-04-07 18:11 | PC.NURSE ---
patient has 1:1 sitter for SI. During admission evaluation patient stated that sometimes she feels like she wants to harm herself but not today.
[2022-04-07 19:46] VITALS: BP 135/64; PULSE 81; RESP 18; TEMP 36.3; O2SAT 95
[2022-04-07] MEDS: ondansetron HCL 4 MG/2 ML VIAL IVPUSH (20:51)
[2022-04-07] MEDS: PHENobarbitaL 15 MG TABLET 45 MG PO (22:05)
[2022-04-08] VITALS: BP 132/62; PULSE 88; RESP 18; TEMP 37; O2SAT 95
[2022-04-08] MEDS: Omeprazole 40 MG CAPSULE.DR PO ×2 (05:36→16:28)
[2022-04-08 07:24] LABS: Hematocrit 32.2 % (37.0-47.0); Hemoglobin 10.8 g/dl (12.0-16.0); Mean Corpuscular HGB Conc 33.5 g/dl (31.0-35.0); Mean Corpuscular Hemoglobin 32.2 pg (27.0-33.0); Mean Corpuscular Volume 96.1 fL (80.0-98.0); Mean Platelet Volume 11.6 fL (9.4-12.3); Red Blood Count 3.35 X10*6/uL (4.20-5.50); White Blood Count 4.2 X10*3/uL (4.8-10.8)
[2022-04-08 07:30] LABS: Platelet Count 32 X10*3/uL (160-400)
[2022-04-08 08:00] VITALS: BP 118/55; PULSE 81; RESP 19; TEMP 37.7; O2SAT 96
[2022-04-08 08:14] LABS: Anion Gap 10 (12-20); Blood Urea Nitrogen 4 mg/dL (9-16); Calcium 7.4 mg/dL (8.4-10.2); Carbon Dioxide 23 mmol/L (22-29); Chloride 105 mmol/L (96-108); Creatinine Clr Calc Pharmacy 150.1; Estimated Glomerular Filt Rate > 60; Glucose Random 79 mg/dL (60-115); Potassium 3.6 mmol/L (3.3-5.1); Sodium 134 mmol/L (135-145)
[2022-04-08] MEDS: DULoxetine HCl 60 MG CAPSULE.DR PO (08:27)
[2022-04-08] MEDS: PHENobarbitaL 15 MG TABLET 45 MG PO (08:27)
[2022-04-08] MEDS: Acamprosate Calcium 333 MG TABLET.DR PO ×2 (08:27→14:23)
[2022-04-08] MEDS: Folic Acid 1 MG TABLET PO (08:27)
[2022-04-08] MEDS: Phytonadione (Vit K1) Oral 10 MG/ML AMPUL 5 MG PO (08:28)
[2022-04-08] MEDS: Thiamine HCL 100 MG TABLET PO (08:28)
[2022-04-08] MEDS: Sucralfate 1 GM TABLET PO ×3 (08:28→16:28)
[2022-04-08] MEDS: Lactated Ringers 1,000 ML 100 ML IVCONT (10:56)
[2022-04-08 11:28] VITALS: BP 125/59; PULSE 86; RESP 18; TEMP 37.7; O2SAT 96
--- NOTE | 2022-04-08 12:38 | MHC.CM.PN ---
EMR REVIEWED, PER MULTIDISCIPLINARY ROUNDS PT IMPROVING HOWEVER NOT YET READY FOR D/C, CARE TEAM AND ANTIC CRISIS EVAL/IPLOC ONCE MEDICALLY CLEARED.
--- NOTE | 2022-04-08 13:36 | P.PNIM_ITS ---
Subjective Subjective Date of Service: 04/08/22 Interval History: patient feeling better this morning, poor by mouth intake due to poor appetite and epigastric discomfort with eating, denies fever chills, no other acute issues overnight no confusion no headache, no dizziness, no diarrhea, no abdominal pain Review of Systems CVS no chest pain respiratory no shortness of breath, no cough Review of Systems: Yes all other systems are reviewed and are negative Physical Exam Vital Signs: Vital Signs: Last Vital Signs Temp 99.8 F 04/08/22 11:28 Pulse 86 04/08/22 11:28 Resp 18 04/08/22 11:28 BP 125/59 L 04/08/22 11:28 Pulse Ox 96 04/08/22 11:28 O2 Del Method 04/08/22 11:28 BMI result Body Mass Index 34.3 Const: Other: General? awake alert x3,in no acute distress. icteric sclera? Neck supple no JVD. CVS? regular rate rhythm, Respiratory lungs clear to auscultation, no respiratory distress, no wheeze, no rhonchi. Gastrointestinal abdomen soft, epigastric tenderness, bowel sounds audible, no guarding , no rigidity. Extremities no? edema. Neuro nonfocal , hand tremors, speech clear. Skin no rash psych appropriate affect Objective Data Active Medications Acamprosate (Acamprosate Calcium 333 Mg Tablet.) 333 mg PO TID [facility] Last Admin: 04/08/22 08:27 Dose: 333 mg Documented By: TOSHA Acetaminophen (Acetaminophen 325 Mg Tablet) 650 mg PO Q6H PRN PRN Reason: Pain, Mild (Pain Scale 1-3) Last Admin: 04/07/22 07:59 Dose: 650 mg Documented By: TOCCECILY Docusate Sodium (Docusate Sodium 100 Mg Capsule) 100 mg PO DAILY PRN PRN Reason: Constipation Duloxetine HCl (Duloxetine Hcl 60 Mg Capsule.) 60 mg PO DAILY [facility] Last Admin: 04/08/22 08:27 Dose: 60 mg Documented By: TOSHA Folic Acid (Folic Acid 1 Mg Tablet) 1 mg PO DAILY [facility] Last Admin: 04/08/22 08:27 Dose: 1 mg Documented By: TOSHA Lactated Ringer's (Lr) 1,000 mls @ 100 mls/hr IVCONT .Q10H [facility] Last Admin: 04/08/22 10:56 Dose: 100 mls/hr Documented By: TOSHA Omeprazole (Omeprazole 40 Mg Capsule.Dr) 40 mg PO BID@0630,1630 [facility] Last Admin: 04/08/22 05:36 Dose: 40 mg Documented By: DONY Ondansetron HCl (Ondansetron Hcl 4 Mg/2 Ml Vial) 4 mg IVPUSH Q8H PRN PRN Reason: Nausea and Vomiting Last Admin: 04/07/22 20:51 Dose: 4 mg Documented By: DONY Pharmacy Consult (Consult Rx Perform Med Rec) 1 each MISCELLANE ONCE PRN PRN Reason: Consult order Pharmacy Consult (Consult Rx Etoh Phenob Im/Po) 1 each MISCELLANE ONCE PRN; Protocol PRN Reason: Consult order Phenobarbital (Phenobarbital 15 Mg Tablet) 45 mg PO BID [facility]; Protocol Stop: 04/09/22 09:01 Last Admin: 04/08/22 08:27 Dose: 45 mg Documented By: TOSHA Phenobarbital (Phenobarbital 15 Mg Tablet) 15 mg PO BID [facility]; Protocol Stop: 04/11/22 09:01 Phenobarbital (Phenobarbital 15 Mg Tablet) 15 mg PO DAILY [facility]; Protocol Stop: 04/13/22 09:01 Phytonadione (Phytonadione (Vit K1) Oral 10 Mg/Ml Ampul) 5 mg PO DAILY [facility] Stop: 04/10/22 09:01 Last Admin: 04/08/22 08:28 Dose: 5 mg Documented By: TOSHA Sodium Chloride (0.9 % Sodium Chloride Flush 3 Ml Syringe) 3 ml IVFLUSH QSHIFT [facility] Last Admin: 04/08/22 08:28 Dose: Not Given Documented By: TOSHA Non-Admin Reason: IV Running Sucralfate (Sucralfate 1 Gm Tablet) 1 gm PO QID [facility] Last Admin: 04/08/22 08:28 Dose: 1 gm Documented By: TOSHA Thiamine HCl (Thiamine Hcl 100 Mg Tablet) 100 mg PO DAILY [facility] Last Admin: 04/08/22 08:28 Dose: 100 mg Documented By: TOSHA Labs CBC & Chem 7: 04/08/22 06:52 04/08/22 06:52 Labs: Laboratory Results - last 24 hr 04/08/22 04/08/22 06:52 06:52 MCV 96.1 MCH 32.2 MCHC 33.5 RDW 13.0 Plt Count 32 L MPV 11.6 Absolute Nucleated RBC 0.000 Nucleated RBC % (auto) 0.0 Anion Gap 10 L Estim Creat Clear Calc 150.1 Estimated GFR > 60 Random Glucose 79 Calcium 7.4 L Assessment and Plan (1) Thrombocytopenia: Status: Acute (2) Hyperbilirubinemia: Status: Acute (3) Suicidal ideation: Status: Acute (4) Depression: Status: Acute (5) Acute anxiety: Status: Acute (6) Alcohol withdrawal: Status: Acute Plan 39-year-old female with past medical history of alcohol abuse, presents to the hospital with complaints of suicidal ideation found to have alcohol withdrawal # alcohol abuse with withdrawal - on admission noted to have asterixis and tongue fasciculation, now resolved, continue to have hand tremors - continue phenobarb protocol, thiamine and folic acid follow care team input regarding disposition # suicidal ideation/severe depression - continue sitter, resumed home medications Cymbalta - seen by psych they recommend to continue Cymbalta, and not to restart Wellbutrin XL due to low seizure threshold, recommend care team for disposition # hyperbilirubinemia - likely secondary to alcohol abuse, no nausea no vomiting will follow-up abdominal ultrasound - abdominal ultrasound showed hepatocellular disease and question cirrhosis no hepatic lesion was noted, it also showed cholelithiasis without acute cholecystitis - INR 1.8/ albumin 3.0 likely due to alcoholic hepatitis and chronic liver disease - follow LFTs, will give vitamin K 5 mg daily x3, recommend high-protein diet and strong recommendation to abstain from alcohol # thrombocytopenia - likely secondary to underlying liver disease in the setting of alcohol abuse - no acute bleed, follow platelet count # alcoholic gastritis complaining of epigastric pain continue PPI b.i.d and sucralfate out strongly recommend to abstain from alcohol no GI bleed noted follow CBC. # chronic normocytic anemia # hypokalemia replete id repeat potassium 3.6 DVT prophylaxis: SCDs Given patient's alcohol abuse and withdrawal, also requirement for further workup of liver disease patient require continued inpatient hospital stay for further management and evaluation Quality Stroke Does the patient have a stroke diagnosis?: No VTE Prior VTE?: No VTE Risk Level:: Medical - moderate - high VTE Device Contraindication: Treatment Not Indicated VTE Drug Contraindication: N/A - Med Ordered
--- NOTE | 2022-04-08 14:42 | MHC.CM.PN ---
PER CARE TEAM PT [facility] IPLOC AND [facility] HAS A BED IF PT DISCHARGED TODAY.
[2022-04-08 16:00] VITALS: BP 138/61; PULSE 85; RESP 18; TEMP 36.8; O2SAT 97
--- NOTE | 2022-04-08 16:12 | P.DS_ITS ---
DS: Providers Provider Date of Service: 04/08/22 Date of admission: 04/06/22 22:06 Primary care physician: Unknown Physician Consults: 04/06/22 21:02 BHN [Consult to Crisis] Stat Reason for consultation: alcohol abuse and SI 04/06/22 22:08 Consult to Psychiatry Routine Consulting Provider: Psych Covering Reason for consultation: SI, depression Has provider been notified: Yes 04/08/22 13:35 Consult to Care Team Routine Comment: Reason for consultation: alcohol abuse and suicidal ideation DS: Diagnosis Discharge Diagnosis (1) Thrombocytopenia: Status: Acute (2) Hyperbilirubinemia: Status: Acute (3) Suicidal ideation: Status: Acute (4) Depression: Status: Acute (5) Acute anxiety: Status: Acute (6) Alcohol withdrawal: Status: Acute DS: Summary Hospital Course Hospital Course: history of presenting illness Date of Service: 04/06/22 Chief Complaint: alcohol withdrawal, SI 47-year-old French-speaking only female with past medical history of depression, GERD, presents the hospital with suicidal ideation and plan to kill herself with no attempt.? Patient reports that she has been feeling very depressed with me family issues.? She also has been using alcohol daily, about 6 beers a day.? Patient initially was admitted for BHU evaluation but found to be withdrawing from alcohol therefore will be admitted to medical floor.? Patient denies any chest pain, no abdominal pain, no nausea or vomiting, no diarrhea constipation, no urinary symptoms and no lower extremity edema.? She reports her last drink was the night before.? She reports a history of alcohol withdrawal with no withdrawal seizures.? On arrival to the ED patient was documented to have a blood pressure of 187/82 with a heart rate of 101 She was also noted to have tongue fasciculation, asterixis Labs are significant for WBC count of 5.8, hemoglobin of 11.5, hematocrit 34.4, total bili of 5.9- 5.4 in February from records obtained from [facility] [place],, AST of 97, ALT of 9, alk-phos of 179, ammonia of 60 albumin of 3.0, UA negative, UDS negative, alcohol level of 372, COVID-19 negative Abdominal ultrasound pending hospital course 39-year-old female with past medical history of alcohol abuse, presents to the hospital with complaints of suicidal ideation found to have alcohol withdrawal # alcohol abuse with withdrawal,? on admission noted to have asterixis and tongue fasciculation, now resolved, continue to have hand tremors,? continue phenobarb protocol, thiamine and folic acid ?? strongly recommend to abstain from alcohol # suicidal ideation/severe depression continue Cymbalta, seen by psych they recommend to continue Cymbalta, and not to restart Wellbutrin XL due to low seizure threshold # hyperbilirubinemia- likely secondary to alcohol abuse, no nausea no vomiting , abdominal ultrasound? showed hepatocellular disease and question cirrhosis, no hepatic lesion was noted, it also showed cholelithiasis without acute cholecystitis, INR? 1.8/ albumin 3.0 likely due to alcoholic hepatitis and chronic liver? disease, vitamin K 5 mg daily x3 doses given recommend high- protein diet and abstinence from alcohol # thrombocytopenia- likely secondary to underlying liver disease in the setting of alcohol abuse, no acute bleed noted # alcoholic gastritis continue PPI b.i.d and sucralfate , strongly recommend to abstain from alcohol no GI bleed noted follow CBC. #? chronic normocytic anemia # hypokalemia? replete ,repeat potassium 3.6 Time Spent with Patient Time attestation: Total time spent providing and/or coordinating discharge services: Discharge coordination time: Greater than 30 minutes Quality: Safe Use of Opioids Does Pt have an Active Cancer Diagnosis on the Problem List?: No Quality: Stroke Does the patient have a stroke diagnosis?: No Physical Exam Vital Signs: Vital Signs: Last Vital Signs Temp 99.8 F 04/08/22 11:28 Pulse 86 04/08/22 11:28 Resp 18 04/08/22 11:28 BP 125/59 L 04/08/22 11:28 Pulse Ox 96 04/08/22 11:28 O2 Del Method 04/08/22 11:28 BMI result Body Mass Index 34.3 Const: Other: General? awake alert x3,in no acute distress. icteric sclera? Neck supple no JVD. CVS? regular rate rhythm, Respiratory lungs clear to auscultation, no respiratory distress, no wheeze, no rhonchi. Gastrointestinal abdomen soft, epigastric tenderness, bowel sounds audible, no guarding , no rigidity. Extremities no? edema. Neuro nonfocal , hand tremors, speech clear. Skin no rash psych appropriate affect DS: Data Data Completed and Pending Labs on day of discharge: Laboratory Results - last 24 hr 04/08/22 04/08/22 06:52 06:52 WBC 4.2 L RBC 3.35 L Hgb 10.8 L Hct 32.2 L MCV 96.1 MCH 32.2 MCHC 33.5 RDW 13.0 Plt Count 32 L MPV 11.6 Absolute Nucleated RBC 0.000 Nucleated RBC % (auto) 0.0 Sodium 134 L Potassium 3.6 Chloride 105 Carbon Dioxide 23 Anion Gap 10 L BUN 4 L Creatinine 0.50 Estim Creat Clear Calc 150.1 Estimated GFR > 60 Random Glucose 79 Calcium 7.4 L Discharge Plan Discharge Anticipated Discharge Date/Time: 04/08/22 16:12 Disposition: Xfer Psychiatric Hosp Referrals: Physician,Unknown J [Primary Care Provider] - 1 Week Discharge Medications: New phenobarbital 15 mg Tablet 15 mg PO BID Qty: 1 0RF phenobarbital 15 mg Tablet 45 mg PO BID Qty: 1 0RF phenobarbital 15 mg Tablet 15 mg PO DAILY Qty: 1 0RF Continued multivitamin Tablet 1 tab PO DAILY sucralfate 1 gram tablet 1 tab PO QID thiamine HCl (vitamin B1) 100 mg Tablet 100 mg PO DAILY folic acid 1 mg tablet 1 tab PO DAILY acamprosate 333 mg tablet,delayed release (DR/EC) 333 mg PO TID duloxetine 60 mg capsule,delayed release(DR/EC) 1 cap PO DAILY Discontinued pantoprazole 40 mg tablet,delayed release (DR/EC) 1 tab PO BID Vivitrol 380 mg suspension,extended rel recon 380 mg IM Q28D Discharge Orders: Discharge Order (Routine); Ordered 04/08/22 Ordered By: Lebron Amanda Forms: Patient Portal Discharge page
--- NOTE | 2022-04-08 17:33 | PC.NURSE ---
patient is being discharged to [facility] , all personal belongings are going with patient.
== END 2022-04-08 17:45 | DRG 241 ==
LOC: HO.ED 21:59 → HO.EDOVER 22:17 → HO.S3 04-07 11:30
PROVIDERS: Physician Assistant; Admitting Provider Internal Medicine; Emergency Provider Internal Medicine; Visit Provider Hospitalist
DX: K29.20 Alcoholic gastritis without bleeding (principal); F33.2 Major depressive disorder, recurrent severe without psychotic features; R45.851 Suicidal ideations; D69.59 Other secondary thrombocytopenia; F10.939 Alcohol use, unspecified with withdrawal, unspecified; E87.6 Hypokalemia; K70.9 Alcoholic liver disease, unspecified; K21.9 Gastro-esophageal reflux disease without esophagitis; D64.9 Anemia, unspecified; E66.3 Overweight; Z68.34 Body mass index [BMI] 34.0-34.9, adult; F41.9 Anxiety disorder, unspecified; Z20.822 Contact with and (suspected) exposure to COVID-19; Y90.8 Blood alcohol level of 240 mg/100 ml or more; Z59.02 Unsheltered homelessness; Z87.891 Personal history of nicotine dependence; Z79.899 Other long term (current) drug therapy
CPT/HCPCS: 36415; 76705; 80048; 80053; 80307; 81001; 82077; 82140; 83735; 85025; 85027; 85610; 87635; 93005; 99285; J1650; J2405; J2560

== ENCOUNTER 2022-04-08 17:14 | Inpatient (IN) | payer OTHER, SELFPAY ==
--- NOTE | 2022-04-08 19:55 | PC.ADMIT ---
pt is a 47 year old female who is Lithuanian speaking only who presented to [facility] ED with alcohol toxicity. pt PMH includes liver cirrhosis and diabetes. an first calender worker was called during admission. during admisssion, pt answered some questions, but she couldn't understand the location of the hospital. pt was asked where is she right now. she said talking to a erlinda. pt appeared confused about different part of the admissions, but understand that she was in here for alcohol abuse. pt was eating dinner and is currently resting.
[2022-04-08 20:07] VITALS: BP 128/59; PULSE 96; TEMP 37.3; O2SAT 96
[2022-04-09 09:35] LABS: Estimated Average Glucose 74 mg/dL; Hemoglobin A1c % 4.2 %
[2022-04-09 09:43] VITALS: BP 106/52; PULSE 83; RESP 18; TEMP 37.3; O2SAT 98
[2022-04-09] MEDS: Sucralfate 1 GM TABLET PO ×4 (09:49→20:12)
[2022-04-09] MEDS: Multivitamin TABLET 1 TAB PO (09:49)
[2022-04-09] MEDS: DULoxetine HCl 60 MG CAPSULE.DR PO (09:49)
[2022-04-09] MEDS: Acamprosate Calcium 333 MG TABLET.DR PO ×3 (09:49→20:12)
[2022-04-09] MEDS: Thiamine HCL 100 MG TABLET PO (09:49)
[2022-04-09] MEDS: Folic Acid 1 MG TABLET PO (09:49)
[2022-04-09 09:59] LABS: Cholesterol 116 mg/dL; Free T4 (Free Thyroxine) 0.99 ng/dL (0.71-1.85); HDL Cholesterol 9 mg/dL; LDL Cholesterol Calculated 86 mg/dl; Magnesium 1.7 mg/dL (1.6-2.6); Thyroid Stimulating Hormone 2.45 uIU/mL (0.32-4.0); Triglycerides 105 mg/dL
[2022-04-09 10:09] LABS: Vitamin B12 1503 pg/mL (200-900)
[2022-04-09] MEDS: Phytonadione (Vit K1) Oral 10 MG/ML AMPUL 5 MG PO (14:41)
--- NOTE | 2022-04-09 14:59 | P.HPPS_ITS ---
HPI Date of Service: 04/09/22 Chief Complaint: Alcohol withdrawal, SI Sources of Information: patient interviewed, chart reviewed and crisis/core team assessment reviewed Additional Sources of Information: Hospitalist DC summary HPI Subjective Notes: Ambriz Warning and Section 12B Narrative: As per psych consult 04/07/22: 47 y.o. female with past medical history of MDD recurrent, GERD, and AUD. She presented to [facility] ED on 04/06/22 due to suicidal ideation, however did not want to disclose her plan, told ED provider she wanted to sleep forever and not wake up. Reported sx of hypersomnia, lack of social supports, and loneliness. Had been drinking daily 4-6 beers a day, last drink was a few days ago. She was admitted to [facility] for alcohol withdrawal, on phenobarb protocol, workup for liver disease. I spoke with pt this evening. She denies having any OP psych services, however says she does not remember the last time she didn?t feel depressed. Has been on Cymbalta 60 mg and Wellbutrin, however stopped taking the Wellbutrin due to lack of efficacy. She is sleeping too much, sleeps in the day. Reports lack of motivation, loss of interest in things. 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 Denies having family support, has one friend. Only drinks boost or ensure, not eating well. Says she drinks daily because when she drinks she doesn?t feel anything, wants to numb herself. Unable to recall the last time she was able to abstain from alcohol. Denies anger. Denies anxiety. No psychotic sx. Denies SI/SIB. Denies hx of suicide attempts. As per Hospitalist DC summary 04/08/22: # alcohol abuse with withdrawal,? on admission noted to have asterixis and tongue fasciculation, now resolved, continue to have hand tremors,? continue phenobarb protocol, thiamine and folic acid ??? strongly recommend to abstain from alcohol # suicidal ideation/severe depression continue Cymbalta, seen by psych they recommend to continue Cymbalta, and not to restart Wellbutrin XL due to low seizure threshold # hyperbilirubinemia- likely secondary to alcohol abuse, no nausea no vomiting , abdominal ultrasound? showed hepatocellular disease and question cirrhosis, no hepatic lesion was noted, it also showed cholelithiasis without ?? acute cholecystitis, INR? 1.8/ albumin 3.0 likely due to alcoholic hepatitis and chronic liver? disease, vitamin K 5 mg daily x3 doses given recommend high- protein diet and abstinence from alcohol # thrombocytopenia- likely secondary to underlying liver disease in the setting of alcohol abuse, no acute bleed? noted # alcoholic gastritis continue PPI b.i.d and sucralfate , strongly recommend to abstain from alcohol no GI bleed noted follow CBC. #? chronic normocytic anemia Today: Noted from nursing admission note that patient appeared confused at times. Interviewed using interpreter for the deaf machine an interpreter for the deaf [id number]. [id number]. Today however she does appear more oriented. Reports that she has been depressed, crying, unable to sleep, no motivation or energy for 6 months. Having suicidal thoughts. Also auditory hallucinations but now denies having these for the last 2 weeks. Denies suicidal plans. Is aware that her liver enzymes were abnormal in the context of alcohol use. Denied other substances. Denied manic symptoms. Aware she was in hospital and it was Monday. Was unable to say the months of the year. Unclear if there is an educational component to this as patient reports being unable to read and never went to school in [place]. She was able to say the days of the week from Monday through Monday, but was unable to say any months of the year. Unable to name it but was aware thanksgiving was coming up it is time to eat turkey soon . Overall patient did not appear to show good understanding around hospitalization, three-day notice process etc. therefore did not accept conditional voluntary and admitted on Section 12. Did give Ambriz warning. Past Psychiatric History: Reports this is her 1st admission. Denied history of suicide attempts. Endorses history of depression and auditory hallucinations. Unable to name previous medications. Medical Evaluation Reviewed: Yes [facility] Medical History (Updated 04/08/22 @ 00:46 by Brittnee Yarbrough NP) Alcohol abuse Depression with anxiety GERD (gastroesophageal reflux disease) Surgical History (Updated 04/07/22 @ 05:52 by Kong Schwab MD) History of History of hernia repair Social History: Has been couch surfing with friends. Denied having children. Was raised in [place] and reports never attending school. Reports being unable to read. Single. Denied legal issues. Substance History: Alcohol Diagnostics Vital Signs (24Hr): Vital Signs - 24 hr 04/08/22 20:07 04/09/22 09:43 Temperature 99.2 F 99.2 F Pulse Rate 96 83 Respiratory Rate 18 Blood Pressure 128/59 L 106/52 L Pulse Oximetry 96 98 Oxygen Delivery Method Room Air Room Air Labs Labs: Laboratory Results - last 48 hr 04/09/22 04/09/22 04/09/22 08:21 08:21 08:21 Estimat Average Glucose 74 Hemoglobin A1c % 4.2 Magnesium 1.7 Triglycerides 105 Cholesterol 116 LDL Cholesterol, Calc 86 HDL Cholesterol 9 Vitamin B12 1503 H Folate 13.0 TSH 2.45 Free T4 0.99 Meds/Allergies Meds Home Medications Medication Instructions Recorded Confirmed Type acamprosate 333 mg tablet,delayed 333 mg PO TID 04/06/22 04/09/22 History release duloxetine 60 mg capsule,delayed 1 cap PO DAILY 04/06/22 04/09/22 History release folic acid 1 mg tablet 1 tab PO DAILY 04/06/22 04/09/22 History multivitamin 1 tab PO DAILY 04/06/22 04/09/22 History sucralfate 1 gram tablet 1 tab PO QID 04/06/22 04/09/22 History thiamine HCl (vitamin B1) 100 mg 100 mg PO DAILY 04/06/22 04/09/22 History tablet Allergies Allergies Allergy/AdvReac Type Severity Reaction Status Date / Time No Known Allergies Allergy Verified 04/07/22 13:26 Mental Status Exam Mental Status Exam Narrative: Pleasant. Fairly presented. Aware she was in hospital and it was Monday. Was unable to say the months of the year. Unclear if there is an educational component to this as patient reports being unable to read and never went to school in [place]. She was able to say the days of the week from Monday through Monday, but was unable to say any months of the year. Unable to name it but was aware thanksgiving was coming up it is time to eat turkey soon . Endorses depression. Endorses SI but no plans. No HI. Denied current psychosis. Insight and judgment appears fair eye feels depressed and agreeable to treatment Assessment & Plan Assessment & Plan (1) MDD (major depressive disorder), recurrent severe, without psychosis: Status: Acute Code(s): F33.2 - Major depressive disorder, recurrent severe without psychotic features Assessment and Plan: Presents with major depressive disorder and also history of psychosis. Unclear past medication history. Unclear if patient is having some difficulty regarding focus concentration and orientation versus there perhaps being an educational component to things. Will need to continue reviewing this on a daily basis. Given alcohol-related liver disease, may consider Abilify as primary medication. We will discuss this more with patient to ensure understanding before starting same. Overall patient did not appear to show good understanding around hospitalization, three-day notice process etc. therefore did not accept conditional voluntary and admitted on Section 12. Did give Ambriz warning Patient educated on: diagnosis and medication risk/benefits Reason for continued inpatient stay Substantial Risk for: harm to self
[2022-04-09 16:00] VITALS: BP 132/60; PULSE 83; RESP 16; TEMP 36.8; O2SAT 99
[2022-04-09] MEDS: Omeprazole 40 MG CAPSULE.DR PO (16:31)
[2022-04-09 18:00] VITALS: BP 132/60; PULSE 83; RESP 16; TEMP 36.8; O2SAT 99
[2022-04-09 19:09] VITALS: BP 132/79; PULSE 69; RESP 16; TEMP 36.6; O2SAT 98
[2022-04-10 08:00] VITALS: BP 134/70; PULSE 90; TEMP 37.1
[2022-04-10] MEDS: Acamprosate Calcium 333 MG TABLET.DR PO ×3 (08:57→19:32)
[2022-04-10] MEDS: DULoxetine HCl 60 MG CAPSULE.DR PO (08:57)
[2022-04-10] MEDS: Thiamine HCL 100 MG TABLET PO (08:57)
[2022-04-10] MEDS: Omeprazole 40 MG CAPSULE.DR PO ×2 (08:57→16:03)
[2022-04-10] MEDS: Multivitamin TABLET 1 TAB PO (08:57)
[2022-04-10] MEDS: Folic Acid 1 MG TABLET PO (08:57)
[2022-04-10] MEDS: Phytonadione (Vit K1) Oral 10 MG/ML AMPUL 5 MG PO (11:06)
[2022-04-10] MEDS: Sucralfate 1 GM TABLET PO ×3 (11:06→19:33)
--- NOTE | 2022-04-10 12:40 | HO.PSYCHPN ---
Subjective Subjective Date of Service: 04/10/22 Reason For Visit: Alcohol withdrawal, SI Subjective Notes: Section 12B Interim History: No significant issues since yesterday. Does appear brighter and more engaged. Self-care better. Interviewed using lens hardener [id number] and then call cut off and utilized lens hardener [id number]. Today she reports feeling good. Denied depression. Still had difficulty regarding orientation- knew she was in a healthcare setting, but unsure exactly which one. Knew it was Monday. Unable to name the month -unclear if there is an educational component to this as patient reports being unable to read and never went to school in [place]. Denied feeling confused. Denies feeling depressed and reports current medications are helpful. Asked for family or supports to get collateral around memory and concentration. Reports he has a friend called Tammie who will come to visit with her and know she is in the hospital because she brought her here initially. Reports not having her cell phone and therefore does not have her friend cell phone number. Medication Compliance: Yes Side effects from medications: No Attending Groups: Intermittent Review of Systems Acute medical concerns: No Review of Systems Review of Systems Nothing acute Mental Status Exam Mental Status Exam Narrative: Pleasant. Fairly presented. Aware she was in a healthcare setting (not sure which one- hospital or clinic) and it was Monday.. Was unable to say the month of the year ?educational component. Reports feeling less depressed. No SI. No HI. Denied current psychosis. Insight and judgment limited Diagnostics Vital Signs (24Hr): Vital Signs - 24 hr 04/09/22 18:00 04/09/22 16:00 04/09/22 19:09 Temperature 98.2 F 98.2 F 97.8 F Pulse Rate 83 83 69 Respiratory Rate 16 16 16 Blood Pressure 132/60 132/60 132/79 Pulse Oximetry 99 99 98 Oxygen Delivery Method Room Air Room Air Room Air Labs Labs: Laboratory Results - last 48 hr 04/09/22 04/09/22 04/09/22 08:21 08:21 08:21 Estimat Average Glucose 74 Hemoglobin A1c % 4.2 Magnesium 1.7 Triglycerides 105 Cholesterol 116 LDL Cholesterol, Calc 86 HDL Cholesterol 9 Vitamin B12 1503 H Folate 13.0 TSH 2.45 Free T4 0.99 Medications Medications Current Medications Acamprosate (Acamprosate Calcium 333 Mg Tablet.) 333 mg PO TID [facility] Last Admin: 04/10/22 08:57 Dose: 333 mg Acetaminophen (Acetaminophen 325 Mg Tablet) 650 mg PO Q6H PRN PRN Reason: Headache/Pain Mild Scale (1-3) Al Hydroxide/Mg Hydroxide (Magnesium Hydrox/Alum Hydrox 30 Ml Oral.Susp) 30 ml PO Q6H PRN PRN Reason: Heartburn/Nausea Docusate Sodium (Docusate Sodium 100 Mg Capsule) 100 mg PO DAILY PRN PRN Reason: Constipation Duloxetine HCl (Duloxetine Hcl 60 Mg Capsule.) 60 mg PO DAILY [facility] Last Admin: 04/10/22 08:57 Dose: 60 mg Folic Acid (Folic Acid 1 Mg Tablet) 1 mg PO DAILY [facility] Last Admin: 04/10/22 08:57 Dose: 1 mg Hydroxyzine HCl (Hydroxyzine Hcl 25 Mg Tablet) 25 mg PO Q6H PRN PRN Reason: Anxiety Magnesium Hydroxide (Milk Of Magnesia 30 Ml Oral.Susp) 30 ml PO DAILY PRN PRN Reason: Constipation Multivitamins/Vitamin C (Multivitamin Tablet) 1 tab PO DAILY [facility] Last Admin: 04/10/22 08:57 Dose: 1 tab Omeprazole (Omeprazole 40 Mg Capsule.) 40 mg PO BID@0630,1630 [facility] Last Admin: 04/10/22 08:57 Dose: 40 mg Ondansetron HCl (Ondansetron Hcl 4 Mg/2 Ml Vial) 4 mg IVPUSH Q8H PRN PRN Reason: Nausea and Vomiting Sucralfate (Sucralfate 1 Gm Tablet) 1 gm PO QID [facility] Last Admin: 04/10/22 11:06 Dose: 1 gm Thiamine HCl (Thiamine Hcl 100 Mg Tablet) 100 mg PO DAILY [facility] Last Admin: 04/10/22 08:57 Dose: 100 mg Trazodone HCl (Trazodone Hcl 50 Mg Tablet) 50 mg PO BEDTIME PRN PRN Reason: Insomnia Allergies Allergies Allergy/AdvReac Type Severity Reaction Status Date / Time No Known Allergies Allergy Verified 04/07/22 13:26 Assessment & Plan Assessment & Plan (1) MDD (major depressive disorder), recurrent severe, without psychosis: Status: Acute Code(s): F33.2 - Major depressive disorder, recurrent severe without psychotic features Assessment and Plan: Presents with major depressive disorder and also history of psychosis. Unclear past medication history. Unclear if patient is having some difficulty regarding focus concentration and orientation versus there perhaps being an educational component to things. Will need to continue reviewing this on a daily basis. Given alcohol-related liver disease, may consider Abilify as primary medication. We will discuss this more with patient to ensure understanding before starting same. Overall patient did not appear to show good understanding around hospitalization, three-day notice process etc. therefore did not accept conditional voluntary and admitted on Section 12. Did give Ambriz warning 04/10/22: denies depression. No changes indicated. Will need collateral ref baseline mental state/cognition (educational limitations versus korsakoffs. Reports he has a friend called Tammie who will come to visit with her and know she is in the hospital because she brought her here initially. Reports not having her cell phone and therefore does not have her friend cell phone number. I spent minutes with the patient and/or on the patient floor today, greater than?50% of which was spent counseling/coordinating care. Reason for contiued inpatient stay Substantial Risk for: inability to function
--- NOTE | 2022-04-10 13:05 | MHC.RECOVSUP ---
? Reason for consult Recovery Support o Current location: 511-1 o Identified substance use concern: Alcohol - Support ? Intervention: <del>o</del> <del>ATS</del> <del>bed</del> <del>search</del> <del>started/completed/in</del> <del>process</del> <del>o</del> <del>MAT</del> <del>started</del> <del>or</del> <del>to</del> <del>be</del> <del>started</del> <del>o</del> <del>Community</del> <del>resources</del> <del>provided</del> <del>o</del> <del>Harm</del> <del>reduction</del> <del>discussion</del> ? Plan: <del>o</del> <del>Referral</del> <del>to</del> <del>[facility]</del> <del>o</del> <del>Bed</del> <del>search</del> <del>in</del> <del>progress</del> <del>to</del> <del>o</del> <del>Follow</del> <del>up</del> <del>tomorrow</del> <del>o</del> <del>Patient</del> <del>awaiting</del> <del>crisis</del> <del>evaluation</del> <del>o</del> <del>Patient</del> <del>to</del> <del>follow</del> <del>up</del> <del>with</del> <del>[facility]</del> <del>after</del> <del>discharge</del> ? Additional information: Met with Patient and she stated that she is okay and dont need any help..
[2022-04-10] MEDS: hydrOXYzine HCL 25 MG TABLET PO (13:42)
[2022-04-10 18:00] VITALS: BP 128/62; PULSE 92; RESP 16; TEMP 35.9; O2SAT 97
[2022-04-10 19:05] VITALS: BP 128/62; PULSE 92; RESP 16; TEMP 35.9; O2SAT 97
[2022-04-10] MEDS: Paliperidone ER 3 MG TAB.ER.24 PO (19:32)
[2022-04-11] MEDS: Omeprazole 40 MG CAPSULE.DR PO ×2 (06:15→17:11)
[2022-04-11 08:00] VITALS: BP 119/56; PULSE 92; TEMP 37.2
[2022-04-11 08:06] LABS: Alanine Aminotransferase 8 U/L (0-31); Albumin Level 2.5 g/dL (3.5-5.0); Alkaline Phosphatase 126 U/L (39-117); Aspartate Amino Transferase 51 U/L (5-31); Bilirubin Direct 5.6 mg/dL (0.0-0.5); Bilirubin Total 8.3 mg/dL (0.0-1.0); Total Protein 6.4 g/dL (6.5-8.0)
[2022-04-11] MEDS: Multivitamin TABLET 1 TAB PO (08:52)
[2022-04-11] MEDS: Acamprosate Calcium 333 MG TABLET.DR PO ×3 (08:52→20:02)
[2022-04-11] MEDS: Sucralfate 1 GM TABLET PO ×4 (08:53→20:05)
[2022-04-11] MEDS: DULoxetine HCl 60 MG CAPSULE.DR PO (08:53)
[2022-04-11] MEDS: Folic Acid 1 MG TABLET PO (08:53)
[2022-04-11] MEDS: Thiamine HCL 100 MG TABLET PO (08:54)
[2022-04-11 15:14] LABS: Eosinophils Absolute Auto 0.1 X10*3/uL (0.0-0.4); Mean Corpuscular HGB Conc 33.3 g/dl (31.0-35.0); PLT CLUMP 1; SCAN SMEAR FLAG 1
[2022-04-11 15:16] LABS: Basophils Absolute Auto 0.1 X10*3/uL (0.0-0.2); Basophils Percent Auto 0.9 % (0-2); Eosinophils Percent Auto 2.2 % (0-4); Hematocrit 34.2 % (37.0-47.0); Hemoglobin 11.4 g/dl (12.0-16.0); Imm Gran Abs Auto 0.02 X10*3/uL (0.00-0.03); Imm Gran Pct Auto 0.3 % (0.0-0.4); Lymphocytes Absolute Auto 1.2 X10*3/uL (1.2-4.9); Lymphocytes Percent Auto 20.2 % (20-40); MANUAL DIFF FLAG SCAN; Mean Corpuscular Hemoglobin 32.5 pg (27.0-33.0); Mean Corpuscular Volume 97.4 fL (80.0-98.0); Mean Platelet Volume 10.6 fL (9.4-12.3); Monocytes Absolute Auto 0.7 X10*3/uL (0.1-1.2); Monocytes Percent Auto 11.6 % (2-11); Neutrophils Absolute Auto 3.8 x10*3/uL (2.0-8.3); Neutrophils Percent Auto 64.8 % (45-73); Red Blood Count 3.51 X10*6/uL (4.20-5.50); Red Cell Distribution Width 13.9 % (11.0-16.0)
[2022-04-11 15:29] LABS: Ammonia 46 umol/L (13-55)
--- NOTE | 2022-04-11 15:33 | HO.PSYCHPN ---
Subjective Subjective Date of Service: 04/11/22 Reason For Visit: Alcohol withdrawal, SI Interim History: Patient seen with spot machine operator Patient reports that she is doing fine and does not want to be here. ?Initially she said she has not had any alcohol since January 13; upon further inquiry she said she drink only 2-3 drinks 1 time last week; however on further inquiry as casualty underwriter reminded patient she was detoxed she said she was drinking every day.? Patient denies that she talked about depression or suicidality in the emergency room.? She said this was true about 4 months ago but not since and denies any current depression or SI.? Patient reports the doctor gave her a pill for depression which has helped and she would like to continue on.? Patient repeats she does not want to be here and wants discharge. research worker encyclopedia talked with collateral who corroborates patient is reporting of SI/depressive history agreeing that there is none current.? Patient denies any AH; she has heard them before but only of her father's voice and only when she is depressed. Patient got 2/3 on word recall; she said she was in a building ?that helps? though did not use the word hospital. Reported symptoms of conjunctivitis on the right eye; casualty underwriter inspected and concurred; started on Erythromycin ophthalmic ointment Mental Status Exam Mental Status Exam Narrative: Pt is alert and oriented; behavior is lying in bed, awake, mostly cooperative; patient is not in distress; dressed in casual attire with unkempt hair and marginal hygiene; jaundiced sclera; right eye crusty; mood is described as ok and affect blunted; minimal eye contact; Speech is normal rate, volume and prosody and not pressured; psychomotor retardation present; thought process is goal directed though concrete; Thought content is on discharge; vacuous; possibly some confabulation; no delusional content, paranoid ideations or grandiosity; denies any SI/HI. There is no evidence of perceptual disturbance and she denies AVH. Patients insight and judgment are impaired but likely at baseline. Diagnostics Vital Signs (24Hr): Vital Signs - 24 hr 04/10/22 18:00 04/10/22 19:05 04/11/22 08:00 Temperature 96.7 F L 96.7 F L 99 F Pulse Rate 92 92 92 Respiratory Rate 16 16 Blood Pressure 128/62 128/62 119/56 L Pulse Oximetry 97 97 Oxygen Delivery Method Room Air Room Air Labs Results: 04/11/22 15:03 04/11/22 15:03 Labs: Laboratory Results - last 48 hr 04/11/22 04/11/22 07:40 15:02 Total Bilirubin 8.3 H Direct Bilirubin 5.6 H AST 51 H ALT 8 Alkaline Phosphatase 126 H D Ammonia 46 Total Protein 6.4 L Albumin 2.5 L Medications Medications Current Medications Acamprosate (Acamprosate Calcium 333 Mg Tablet.) 333 mg PO TID [facility] Last Admin: 04/11/22 08:52 Dose: 333 mg Acetaminophen (Acetaminophen 325 Mg Tablet) 650 mg PO Q6H PRN PRN Reason: Headache/Pain Mild Scale (1-3) Al Hydroxide/Mg Hydroxide (Magnesium Hydrox/Alum Hydrox 30 Ml Oral.Susp) 30 ml PO Q6H PRN PRN Reason: Heartburn/Nausea Docusate Sodium (Docusate Sodium 100 Mg Capsule) 100 mg PO DAILY PRN PRN Reason: Constipation Duloxetine HCl (Duloxetine Hcl 60 Mg Capsule.) 60 mg PO DAILY [facility] Last Admin: 04/11/22 08:53 Dose: 60 mg Erythromycin (Erythromycin Base 0.5% Oph Oin 1 Gm Tube) 1 cm EYE-RIGHT QID [facility] Stop: 04/15/22 23:50 Folic Acid (Folic Acid 1 Mg Tablet) 1 mg PO DAILY [facility] Last Admin: 04/11/22 08:53 Dose: 1 mg Hydroxyzine HCl (Hydroxyzine Hcl 25 Mg Tablet) 25 mg PO Q6H PRN PRN Reason: Anxiety Last Admin: 04/10/22 13:42 Dose: 25 mg Magnesium Hydroxide (Milk Of Magnesia 30 Ml Oral.Susp) 30 ml PO DAILY PRN PRN Reason: Constipation Multivitamins/Vitamin C (Multivitamin Tablet) 1 tab PO DAILY [facility] Last Admin: 04/11/22 08:52 Dose: 1 tab Omeprazole (Omeprazole 40 Mg Capsule.) 40 mg PO BID@0630,1630 [facility] Last Admin: 04/11/22 06:15 Dose: 40 mg Ondansetron HCl (Ondansetron Hcl 4 Mg/2 Ml Vial) 4 mg IVPUSH Q8H PRN PRN Reason: Nausea and Vomiting Sucralfate (Sucralfate 1 Gm Tablet) 1 gm PO QID [facility] Last Admin: 04/11/22 08:53 Dose: 1 gm Thiamine HCl (Thiamine Hcl 100 Mg Tablet) 200 mg PO DAILY [facility] Trazodone HCl (Trazodone Hcl 50 Mg Tablet) 50 mg PO BEDTIME PRN PRN Reason: Insomnia Allergies Allergies Allergy/AdvReac Type Severity Reaction Status Date / Time No Known Allergies Allergy Verified 04/07/22 13:26 Assessment & Plan Assessment & Plan (1) MDD (major depressive disorder), recurrent severe, without psychosis: Status: Acute Code(s): F33.2 - Major depressive disorder, recurrent severe without psychotic features Plan 47 y.o. female with past medical history of MDD recurrent, GERD, and chronic, severe alcohol dependence and possibly liver Cirrhosis who presened to ED for alcohol detox and on admission made suicidal comments. She reported drinking daily 4-6 beers a day, last drink was a few days ago. She was admitted to [facility] for alcohol withdrawal, on phenobarb protocol, workup for liver disease. On admission, endorsed depression and that she's on Cymbalta 60 mg (dc'd Wellbutrin).. Reported lack of motivation, loss of interest in things. 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 Denies anger. Denies anxiety. No psychotic sx. Denies SI/SIB. Denies hx of suicide attempts. 04/09: Noted from nursing admission note that patient appeared confused at times.? Interviewed using litigation claim representative machine an litigation claim representative 7.? [id number]. Today however she does appear more oriented.? Reports that she has been depressed, crying, unable to sleep, no motivation or energy for 6 months.? Having suicidal thoughts.? Also auditory hallucinations but now denies having these for the last 2 weeks.? Denies suicidal plans.? Is aware that her liver enzymes were abnormal in the context of alcohol use.? Denied other substances.? Denied manic symptoms.? Aware she was in hospital and it was Monday.? Was unable to say the months of the year.? Unclear if there is an educational component to this as patient reports being unable to read and never went to school in [place].? She was able to say the days of the week from Monday through Monday, but was unable to say any months of the year. Unable to name it but was aware thanksgiving was coming up it is time to eat turkey soon .? Overall patient did not appear to show good understanding around hospitalization, three-day notice process etc. therefore did not accept conditional voluntary and admitted on Section 12.? Did give Ambriz warning. Past Psychiatric History: Reports this is her 1st admission.? Denied history of suicide attempts.? Endorses history of depression and auditory hallucinations.? Unable to name previous medications. 04/10 No significant issues since yesterday.? Does appear brighter and more engaged.? Self-care better.? Interviewed using litigation claim representative [id number] and then call cut off and utilized litigation claim representative [id number].? Today she reports feeling good.? Denied depression.? Still had difficulty regarding orientation- knew she was in a healthcare setting, but unsure exactly which one.? Knew it was Monday. ? Unable to name the month -unclear if there is an educational component to this as patient reports being unable to read and never went to school in [place]. ? Denied feeling confused.? Denies feeling depressed and reports current medications are helpful.? Asked for family or supports to get collateral around memory and concentration....having some difficulty regarding focus concentration and orientation versus there perhaps being an educational component to things.? Will need to continue reviewing this on a daily basis.? Overall patient did not appear to show good understanding around hospitalization, three-day notice process etc. therefore did not accept conditional voluntary and admitted on Section 12.? Did give Ambriz warning -denies depression. No changes indicated. Will need collateral ref baseline mental state/cognition (educational limitations versus korsakoffs. 04/11 Patient denies depression or SI; says she has had both in the past but medication has helped; patient's friend Tammie contacted and provided collateral information corroborating that patient was both depressed with SI several months ago but not recently; also regarding AH, that it only of her father's voice when she is depressed.? Tammie?s main concern is patient's chronic alcoholism -casualty underwriter Finds it likely that while patient was intoxicated/in detox she had more pronounced depressive feelings which she expressed; no that detox has concluded, the depressive feelings/thoughts have also subsided.? Patient has some cognitive deficits however at this time it is unclear as to patient's baseline; she is also in the post detox fog which is likely contributory and has had elevated ammonia levels; also Korsakoff's remains a possible contributing factor. CV was initially rejected, however she wants discharge at this time. -will continue to monitor. However, despite patient?s chronic alcoholism, risk of relapse and understanding of the subsequent risks involved including damage to her liver, she may be at her baseline.? She denies depression or SI at this time.? If patient remains stable would likely DC PLAN: 12b q15 min checks START Erythromycin ophthalmic ointment qid for 5 days for Conjunctivitis Right Eye Increased Thiamine to 200mg daily Continue Duloxetine which patient says is effective continue to pursue collateral. Repeated labs which showed improvement/remained stable; Ammonia level returned to WNL Liver injury As per Hospitalist DC summary 04/08/22: -On admission noted to have asterixis and tongue fasciculation, now resolved, continue to have hand tremors; [treated with] phenobarb protocol, thiamine and folic acid -hyperbilirubinemia- likely secondary to alcohol abuse..., abdominal ultrasound? showed hepatocellular disease and question cirrhosis, no hepatic lesion was noted, it also showed cholelithiasis without ?? acute cholecystitis, INR? 1.8/ albumin 3.0 likely due to alcoholic hepatitis and chronic liver? disease, vitamin K 5 mg daily x3 doses given recommend high-protein diet and abstinence from alcohol -thrombocytopenia- likely secondary to underlying liver disease in the setting of alcohol abuse, no acute bleed -alcoholic gastritis continue PPI b.i.d and sucralfate , strongly recommend to abstain from alcohol no GI bleed noted follow CBC. -chronic normocytic anemia I spent minutes with the patient and/or on the patient floor today, greater than?50% of which was spent counseling/coordinating care. Patient educated on: diagnosis, medication risk/benefits, substance abuse and medical condition Informed Consent: understands, does not understand and further education needed Reason for contiued inpatient stay Substantial Risk for: rapid decompensation
[2022-04-11 15:36] LABS: Platelet Count 54 X10*3/uL (160-400); White Blood Count 5.8 X10*3/uL (4.8-10.8)
[2022-04-11 15:37] LABS: Anion Gap 12 (12-20); Blood Urea Nitrogen 8 mg/dL (9-16); Carbon Dioxide 24 mmol/L (22-29); Chloride 101 mmol/L (96-108); Estimated Glomerular Filt Rate > 60; Potassium 3.3 mmol/L (3.3-5.1); SLIDE REVIEW VERIFIED; Sodium 134 mmol/L (135-145)
[2022-04-11 18:00] VITALS: BP 132/82; PULSE 68; RESP 16; TEMP 36.6; O2SAT 97
[2022-04-11 20:00] VITALS: BP 132/82; PULSE 89; RESP 16; TEMP 36.4; O2SAT 97
[2022-04-11] MEDS: Erythromycin Base 0.5% Oph Oin 1 GM TUBE 1 CM EYE-RIGHT ×3 (20:02→20:06)
[2022-04-12 06:00] VITALS: BP 118/57; PULSE 81; RESP 18; TEMP 37.5; O2SAT 97
[2022-04-12] MEDS: Omeprazole 40 MG CAPSULE.DR PO ×2 (06:34→17:23)
[2022-04-12] MEDS: Thiamine HCL 100 MG TABLET 200 MG PO (09:03)
[2022-04-12] MEDS: DULoxetine HCl 60 MG CAPSULE.DR PO (09:04)
[2022-04-12] MEDS: Erythromycin Base 0.5% Oph Oin 1 GM TUBE 1 CM EYE-RIGHT ×4 (09:04→22:02)
[2022-04-12] MEDS: Acamprosate Calcium 333 MG TABLET.DR PO ×3 (09:04→22:01)
[2022-04-12] MEDS: Multivitamin TABLET 1 TAB PO (09:04)
[2022-04-12] MEDS: Folic Acid 1 MG TABLET PO (09:04)
[2022-04-12] MEDS: Sucralfate 1 GM TABLET PO ×4 (09:04→22:01)
--- NOTE | 2022-04-12 09:40 | P.PNPSI_ITS ---
Subjective Subjective Date of Service: 04/12/22 Reason For Visit: Alcohol withdrawal, SI Interim History: Patient what's brighter today and more engaged in one-to-one discussion. Patient's seen with? Polish speaking staff. Patient reports that she's doing ?good? and denies any depression or SI. She reiterates that several months ago, she was depressed and suicidal but no longer and cannot explain why she said so and the emergency room. Patient denies any AVH. She feels that her medications help with depression. Bisque Brusher again discussed the consequences of drinking alcohol. She reports that she drinks simply because she loves drinking and not for any other reason. She agreed that it is damagingher body and that she plans to stop drinking going forward. Bisque Brusher discussed program for substance abuse however patient said that she rather take pills. Patient was started Accamprosate and she said she will remain on this for now. Bisque Brusher discussed patients liver labs and the risk of l iver failure should she continue drinking; patient says she understand the consequences. Of course she's eating and drinking well. Plan is to return to Live with her boyfriend Steve with whom psychosocial rehabilitation counselor contacted and the corroborates the plan. Mental Status Exam Mental Status Exam Narrative: Pt is alert and oriented; behavior is sitting on bed, awake, cooperative, friendly and more engaged; patient is not in distress; dressed in casual attire adequately groomed and with adequate hygiene; jaundiced sclera; right eye no longer crusty; mood is described as good and affect congruent, brighter; good eye contact; Speech is normal rate, volume and prosody and not pressured;no psy chomotor retardation present; thought process is goal directed though concrete; Thought content is on discharge; no delusional content, paranoid ideations or grandiosity; denies any SI/HI. There is no evidence of perceptual disturbance and she denies AVH. Patients insight and judgment are fair and at baseline. Diagnostics Vital Signs (24Hr): Vital Signs - 24 hr 04/11/22 18:00 04/11/22 20:00 04/12/22 06:00 Temperature 97.8 F 97.6 F 99.5 F Pulse Rate 68 89 81 Respiratory Rate 16 16 18 Blood Pressure 132/82 132/82 118/57 L Pulse Oximetry 97 97 97 Oxygen Delivery Method Room Air Room Air Room Air Labs Results: 04/11/22 15:03 04/11/22 15:03 Labs: Laboratory Results - last 48 hr 04/11/22 04/11/22 04/11/22 07:40 15:02 15:03 WBC 5.8 RBC 3.51 L Hgb 11.4 L Hct 34.2 L MCV 97.4 MCH 32.5 MCHC 33.3 RDW 13.9 Plt Count 54 L D MPV 10.6 Immature Gran % (Auto) 0.3 Neut % (Auto) 64.8 Lymph % (Auto) 20.2 [place] % (Auto) 11.6 H Eos % (Auto) 2.2 Baso % (Auto) 0.9 Lymph # (Auto) 1.2 [place] # (Auto) 0.7 Eos # (Auto) 0.1 Baso # (Auto) 0.1 Abs Immat Gran (auto) 0.02 Absolute Neuts (auto) 3.8 Absolute Nucleated RBC 0.000 Nucleated RBC % (auto) 0.0 Smear Tech's Comments VERIFIED Sodium Potassium Chloride Carbon Dioxide Anion Gap BUN Creatinine Estim Creat Clear Calc Estimated GFR Total Bilirubin 8.3 H Direct Bilirubin 5.6 H AST 51 H ALT 8 Alkaline Phosphatase 126 H D Ammonia 46 Total Protein 6.4 L Albumin 2.5 L 04/11/22 15:03 WBC RBC Hgb Hct MCV MCH MCHC RDW Plt Count MPV Immature Gran % (Auto) Neut % (Auto) Lymph % (Auto) [place] % (Auto) Eos % (Auto) Baso % (Auto) Lymph # (Auto) [place] # (Auto) Eos # (Auto) Baso # (Auto) Abs Immat Gran (auto) Absolute Neuts (auto) Absolute Nucleated RBC Nucleated RBC % (auto) Smear Tech's Comments Sodium 134 L Potassium 3.3 Chloride 101 Carbon Dioxide 24 Anion Gap 12 BUN 8 L Creatinine 0.55 Estim Creat Clear Calc TNP Estimated GFR > 60 Total Bilirubin Direct Bilirubin AST ALT Alkaline Phosphatase Ammonia Total Protein Albumin Medications Medications Current Medications Acamprosate (Acamprosate Calcium 333 Mg Tablet.) 333 mg PO TID [facility] Last Admin: 04/12/22 09:04 Dose: 333 mg Acetaminophen (Acetaminophen 325 Mg Tablet) 650 mg PO Q6H PRN PRN Reason: Headache/Pain Mild Scale (1-3) Al Hydroxide/Mg Hydroxide (Magnesium Hydrox/Alum Hydrox 30 Ml Oral.Susp) 30 ml PO Q6H PRN PRN Reason: Heartburn/Nausea Docusate Sodium (Docusate Sodium 100 Mg Capsule) 100 mg PO DAILY PRN PRN Reason: Constipation Duloxetine HCl (Duloxetine Hcl 60 Mg Capsule.Dr) 60 mg PO DAILY [facility] Last Admin: 04/12/22 09:04 Dose: 60 mg Erythromycin (Erythromycin Base 0.5% Oph Oin 1 Gm Tube) 1 cm EYE-RIGHT QID [facility] Stop: 04/15/22 23:50 Last Admin: 04/12/22 09:04 Dose: 1 cm Folic Acid (Folic Acid 1 Mg Tablet) 1 mg PO DAILY [facility] Last Admin: 04/12/22 09:04 Dose: 1 mg Hydroxyzine HCl (Hydroxyzine Hcl 25 Mg Tablet) 25 mg PO Q6H PRN PRN Reason: Anxiety Last Admin: 04/10/22 13:42 Dose: 25 mg Magnesium Hydroxide (Milk Of Magnesia 30 Ml Oral.Susp) 30 ml PO DAILY PRN PRN Reason: Constipation Multivitamins/Vitamin C (Multivitamin Tablet) 1 tab PO DAILY [facility] Last Admin: 04/12/22 09:04 Dose: 1 tab Omeprazole (Omeprazole 40 Mg Capsule.) 40 mg PO BID@0630,1630 [facility] Last Admin: 04/12/22 06:34 Dose: 40 mg Ondansetron HCl (Ondansetron Hcl 4 Mg/2 Ml Vial) 4 mg IVPUSH Q8H PRN PRN Reason: Nausea and Vomiting Sucralfate (Sucralfate 1 Gm Tablet) 1 gm PO QID [facility] Last Admin: 04/12/22 09:04 Dose: 1 gm Thiamine HCl (Thiamine Hcl 100 Mg Tablet) 200 mg PO DAILY [facility] Last Admin: 04/12/22 09:03 Dose: 200 mg Trazodone HCl (Trazodone Hcl 50 Mg Tablet) 50 mg PO BEDTIME PRN PRN Reason: Insomnia Allergies Allergies Allergy/AdvReac Type Severity Reaction Status Date / Time No Known Allergies Allergy Verified 04/07/22 13:26 Assessment & Plan Assessment & Plan (1) MDD (major depressive disorder), recurrent severe, without psychosis: Status: Acute Code(s): F33.2 - Major depressive disorder, recurrent severe without psychotic features Plan 47 y.o. female with past medical history of MDD recurrent, GERD, and chronic, severe alcohol dependence and possibly liver Cirrhosis who presened to ED for alcohol detox and on admission made suicidal comments. She reported drinking daily 4-6 beers a day, last drink was a few days ago. She was admitted to [facility] for alcohol withdrawal, on phenobarb protocol, workup for liver disease. On admission, endorsed depression and that she's on Cymbalta 60 mg (dc'd Wellbutrin).. Reported lack of motivation, loss of interest in things. 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 Denies anger. Denies anxiety. No psychotic sx. Denies SI/SIB. Denies hx of suicide attempts. 04/09: Noted from nursing admission note that patient appeared confused at times.? Interviewed using development scientist machine an development scientist 7.? [id number]. Today however she does appear more oriented.? Reports that she has been depressed, crying, diego ble to sleep, no motivation or energy for 6 months.? Having suicidal thoughts.? Also auditory hallucinations but now denies having these for the last 2 weeks.? Denies suicidal plans.? Is aware that her liver enzymes were abnormal in the context of alcohol use.? Denied other substances.? Denied manic symptoms.? Aware she was in hospital and it was Monday.? Was unable to say the months of the year.? Unclear if there is an educational component to this as patient reports being unable to read and never went to school in [place].? She was able to say the days of the week from Monday through Monday, but was unable to say any months of the year. Unable to name it but was aware thanksgiving was coming up it is time to eat turkey soon .? Overall patient did not appear to show good understanding around hospitalization, three-day notice process etc. therefore did not accept conditional voluntary and admitted on Section 12.? Did give Ambriz warning. Past Psychiatric History: Reports this is her 1st admission.? Denied history of suicide attempts.? Endorses history of depression and auditory hallucinations.? Unable to name previous medications. 04/10 No significant issues since yesterday.? Does appear brighter and more engaged.? Self-care better.? Interviewed using development scientist [id number] and then call cut off and utilized development scientist [id number].? Today she reports feeling good.? Denied depression.? Still had difficulty regarding orientation- knew she was in a healthcare setting, but unsure exactly which one.? Knew it was Monday. ? Unable to name the month -unclear if there is an educational component to this as patient reports being unable to read and never went to school in [place]. ? Denied feeling confused.? Denies feeling depressed and reports current medications are helpful.? Asked for family or supports to get collateral around memory and concentration....having some difficulty regarding focus concentration and orientation versus there perhaps being an educational component to things.? Will need to continue reviewing this on a daily basis.? Overall patient did not appear to show good understanding around hospitalization, three-day notice process etc. therefore did not accept c onditional voluntary and admitted on Section 12.? Did give Ambriz warning -denies depression. No changes indicated. Will need collateral ref baseline mental state/cognition (educational limitations versus korsakoffs. 04/11 Patient denies depression or SI; says she has had both in the past but medica tion has helped; patient's friend Tammie contacted and provided collateral information corroborating that patient was both depressed with SI several months ago but not recently; also regarding AH, that it only of her father's voice when she is depressed.? Tammie?s main concern is patient's chronic alcoholism -designer/writer Finds it likely that while patient was intoxicated/in detox she had more pronounced depressive feelings which she expressed; no that detox has concluded, the depressive feelings/thoughts have also subsided.? Patient has some cognitive deficits however at this time it is unclear as to patient's baseline; she is also in the post detox fog which is likely contributory and has had elevated ammonia levels; also Korsakoff's remains a possible contributing factor. CV was initially rejected, however she wants discharge at this time. -will continue to monitor. However, despite patient?s chronic alcoholism, risk of relapse and understanding of the subsequent risks involved including damage to her liver, she may be at her baseline.? She denies depression or SI at this time.? If patient remains stable would likely DC 04/12 Patient what's brighter today and more engaged in one-to-one discussion. Patient's seen with ?Polish speaking staff. Patient reports that she's doing ?good? and denies any depression or SI. She reiterates that several months ago, she was depressed and suicidal but no longer and cannot explain why she said so and the emergency room. Patient denies any AVH. She feels that her medications help with depression. Bisque Brusher again discussed the consequences of drinking alcohol. She reports that she drinks simply because she loves drinking and not for any other reason. She agreed that it is damagingher body and that she plans to stop drinking going forward. Bisque Brusher discussed program for substance abuse however patient said that she rather take pills. Patient was started Accamprosate and she said she will remain on this for now. Bisque Brusher discussed patients liver labs and the risk of liver failure should she continue drinking; patient says she understand the consequences. Of course she's eating and drinking well. Plan is to return to Live with her boyfriend Steve with whom psychosocial rehabilitation counselor contacted and the corroborates the plan. patients 12b is due; she is organized in speech and behavior. mood is good, denies depression and SI and is returning to live with boyfriend. Patient of course remains at high risk for relapse, but this is a chronic issue she's struggled with for years; she understands the risks and longer stay on unit will not change risk. Patient wants to discharge and she is not in imminent risk of harm to self or others. Patients' request is honored. PLAN: 12b q15 min checks continue Erythromycin ophthalmic ointment qid for 5 days for Conjunctivitis Right Eye Increased Thiamine to 200mg daily Continue Duloxetine which patient says is effective continue to pursue collateral. Repeated labs which showed improvement/remained stable; Ammonia level returned to WNL Liver injury As per Hospitalist DC summary 04/08/22: -On admission noted to have asterixis and tongue fasciculation, now resolved, continue to have hand tremors; [treated with] phenobarb protocol, thiamine and folic acid -hyperbilirubinemia- likely secondary to alcohol abuse..., abdominal ultrasound? showed hepatocellular disease and question cirrhosis, no hepatic lesion was noted, it also showed cholelithiasis without ?? acute cholecystitis, INR? 1.8/ albumin 3.0 likely due to alcoholic hepatitis and chronic liver? disease, vitamin K 5 mg daily x3 doses given recommend high- protein diet and abstinence from alcohol -thrombocytopenia- likely secondary to underlying liver disease in the setting of alcohol abuse, no acute bleed -alcoholic gastritis continue PPI b.i.d and sucralfate , strongly recommend to abstain from alcohol no GI bleed noted follow CBC. -chronic normocytic anemia I spent minutes with the patient and/or on the patient floor today, greater than?50% of which was spent counseling/coordinating care. Patient educated on: diagnosis, medication risk/benefits, substance abuse and medical condition Informed Consent: understands Reason for contiued inpatient stay Substantial Risk for: stable for discharge
[2022-04-12 21:00] VITALS: BP 119/54; PULSE 89; TEMP 37.2
[2022-04-13 07:50] VITALS: BP 126/60; PULSE 85; TEMP 37.4; O2SAT 99
--- NOTE | 2022-04-13 08:21 | PM.PSYDC ---
DS: Providers Provider Date of Service: 04/13/22 Date of admission: 04/08/22 17:14 Date of discharge: 04/13/22 Primary care physician: Unknown Physician Attending physician on admission: Jamil Gonzales Attending physician on discharge: Fortunato Sterling DS: Diagnosis Discharge Diagnosis (1) MDD (major depressive disorder), recurrent severe, without psychosis: Status: Acute DS: Medications Discharge Medications Home Medications: Previous Rx's Medication Instructions Recorded acamprosate 333 mg tablet,delayed 333 mg PO TID 30 days #90 tabs 04/12/22 release acamprosate 333 mg tablet,delayed 333 mg PO TID 30 days #90 tabs 04/12/22 release duloxetine 60 mg capsule,delayed 60 mg PO DAILY 30 days #30 caps 04/12/22 release erythromycin 5 mg/gram (0.5 %) eye 1 cm ophthalmic-Right QID 5 days 04/12/22 ointment #3.5 grams folic acid 1 mg tablet 1 mg PO DAILY 30 days #30 tabs 04/12/22 multivitamin 1 tab PO DAILY 30 days #30 tabs 04/12/22 omeprazole 40 mg capsule,delayed 40 mg PO BID@0630,1630 30 days #60 04/12/22 release caps sucralfate 1 gram tablet 1 g PO QID 30 days #120 tabs 04/12/22 thiamine HCl (vitamin B1) 250 mg 250 mg PO DAILY 30 days #30 tabs 04/12/22 tablet Mental Status Exam Mental Status Exam Narrative: Pt is alert and oriented; behavior cooperative, friendly, calm; patient is not in distress; dressed in casual attire adequately groomed and with adequate hygiene; jaundiced sclera; mood is described as good and affect congruent, brighter; good eye contact; Speech is normal rate, volume and prosody and not pressured;no psychomotor retardation present; thought process is goal directed though concrete; Thought content is on discharge; no delusional content, paranoid ideations or grandiosity; denies any SI/HI. There is no evidence of perceptual disturbance and she denies AVH. Patients insight and judgment are fair and at baseline. Data Data Completed and Pending Completed studies during hospitalization [Text1]: 04/09/22 04/09/22 04/09/22 08:21 08:21 08:21 WBC RBC Hgb Hct MCV MCH MCHC RDW Plt Count MPV Immature Gran % (Auto) Neut % (Auto) Lymph % (Auto) [place] % (Auto) Eos % (Auto) Baso % (Auto) Lymph # (Auto) [place] # (Auto) Eos # (Auto) Baso # (Auto) Abs Immat Gran (auto) Absolute Neuts (auto) Absolute Nucleated RBC Nucleated RBC % (auto) Smear Tech's Comments Sodium Potassium Chloride Carbon Dioxide Anion Gap BUN Creatinine Estim Creat Clear Calc Estimated GFR Estimat Average Glucose 74 Hemoglobin A1c % 4.2 Magnesium 1.7 Total Bilirubin Direct Bilirubin AST ALT Alkaline Phosphatase Ammonia Total Protein Albumin Triglycerides 105 Cholesterol 116 LDL Cholesterol, Calc 86 HDL Cholesterol 9 Vitamin B12 1503 H Folate 13.0 TSH 2.45 Free T4 0.99 04/11/22 04/11/22 04/11/22 07:40 15:02 15:03 WBC 5.8 RBC 3.51 L Hgb 11.4 L Hct 34.2 L MCV 97.4 MCH 32.5 MCHC 33.3 RDW 13.9 Plt Count 54 L D MPV 10.6 Immature Gran % (Auto) 0.3 Neut % (Auto) 64.8 Lymph % (Auto) 20.2 [place] % (Auto) 11.6 H Eos % (Auto) 2.2 Baso % (Auto) 0.9 Lymph # (Auto) 1.2 [place] # (Auto) 0.7 Eos # (Auto) 0.1 Baso # (Auto) 0.1 Abs Immat Gran (auto) 0.02 Absolute Neuts (auto) 3.8 Absolute Nucleated RBC 0.000 Nucleated RBC % (auto) 0.0 Smear Tech's Comments VERIFIED Sodium Potassium Chloride Carbon Dioxide Anion Gap BUN Creatinine Estim Creat Clear Calc Estimated GFR Estimat Average Glucose Hemoglobin A1c % Magnesium Total Bilirubin 8.3 H Direct Bilirubin 5.6 H AST 51 H ALT 8 Alkaline Phosphatase 126 H D Ammonia 46 Total Protein 6.4 L Albumin 2.5 L Triglycerides Cholesterol LDL Cholesterol, Calc HDL Cholesterol Vitamin B12 Folate TSH Free T4 04/11/22 15:03 WBC RBC Hgb Hct MCV MCH MCHC RDW Plt Count MPV Immature Gran % (Auto) Neut % (Auto) Lymph % (Auto) [place] % (Auto) Eos % (Auto) Baso % (Auto) Lymph # (Auto) [place] # (Auto) Eos # (Auto) Baso # (Auto) Abs Immat Gran (auto) Absolute Neuts (auto) Absolute Nucleated RBC Nucleated RBC % (auto) Smear Tech's Comments Sodium 134 L Potassium 3.3 Chloride 101 Carbon Dioxide 24 Anion Gap 12 BUN 8 L Creatinine 0.55 Estim Creat Clear Calc TNP Estimated GFR > 60 Estimat Average Glucose Hemoglobin A1c % Magnesium Total Bilirubin Direct Bilirubin AST ALT Alkaline Phosphatase Ammonia Total Protein Albumin Triglycerides Cholesterol LDL Cholesterol, Calc HDL Cholesterol Vitamin B12 Folate TSH Free T4 DS: Summary Hospital Course Hospital Course: HPI: 47 y.o. female with past medical history of MDD recurrent, GERD, and chronic, severe alcohol dependence and possibly liver Cirrhosis who presened to ED for alcohol detox and on admission made suicidal comments. She reported drinking daily 4-6 beers a day, last drink was a few days ago. She was [place] [facility] [place], on phenobarb protocol, workup for liver disease. On admission, endorsed depression and that she's on Cymbalta 60 mg (dc'd Wellbutrin).. Reported lack of motivation, loss of interest in things. 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 Denies anger. Denies anxiety. No psychotic sx. Denies SI/SIB. Denies hx of suicide attempts. Hospital course: 04/09: Noted from nursing admission note that patient appeared confused at times.? Interviewed using historical interpreter machine an historical interpreter 7.? [id number]. Today however she does appear more oriented.? Reports that she has been depressed, crying, unable to sleep, no motivation or energy for 6 months.? Having suicidal thoughts.? Also auditory hallucinations but now denies having these for the last 2 weeks.? Denies suicidal plans.? Is aware that her liver enzymes were abnormal in the context of alcohol use.? Denied other substances.? Denied manic symptoms.? Aware she was in hospital and it was Monday.? Was unable to say the months of the year.? Unclear if there is an educational component to this as patient reports being unable to read and never went to school in [place].? She was able to say the days of the week from Monday through Monday, but was unable to say any months of the year. Unable to name it but was aware thanksgiving was coming up it is time to eat turkey soon .? Overall patient did not appear to show good understanding around hospitalization, three-day notice process etc. therefore did not accept conditional voluntary and admitted on Section 12.? Did give Ambriz warning. Past Psychiatric History: Reports this is her 1st admission.? Denied history of suicide attempts.? Endorses history of depression and auditory hallucinations.? Unable to name previous medications. 04/10 No significant issues since yesterday.? Does appear brighter and more engaged.? Self-care better.? Interviewed using historical interpreter [id number] and then call cut off and utilized historical interpreter [id number].? Today she reports feeling good.? Denied depression.? Still had difficulty regarding orientation- knew she was in a healthcare setting, but unsure exactly which one.? Knew it was Monday. ? Unable to name the month -unclear if there is an educational component to this as patient reports being unable to read and never went to school in [place]. ? Denied feeling confused.? Denies feeling depressed and reports current medications are helpful.? Asked for family or supports to get collateral around memory and concentration....having some difficulty regarding focus concentration and orientation versus there perhaps being an educational component to things.? Will need to continue reviewing this on a daily basis.? Overall patient did not appear to show good understanding around hospitalization, three-day notice process etc. therefore did not accept conditional voluntary and admitted on Section 12.? Did give Ambriz warning -denies depression. No changes indicated. Will need collateral ref baseline mental state/cognition (educational limitations versus korsakoffs. 04/11 Patient denies depression or SI; says she has had both in the past but medication has helped; patient's friend Tammie contacted and provided collateral information corroborating that patient was both depressed with SI several months ago but not recently; also regarding AH, that it only of her father's voice when she is depressed.? 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 Patient has some cognitive deficits however at this time it is unclear as to patient's baseline; she is also in the post detox fog which is likely contributory and has had elevated ammonia levels; also Korsakoff's remains a possible contributing factor. CV was initially rejected, however she wants discharge at this time. -will continue to monitor. However, despite patient?s chronic alcoholism, risk of relapse and understanding of the subsequent risks involved including damage to her liver, she may be at her baseline.? She denies depression or SI at this time.?Continued Duloxetine which patient says is effective. If patient remains stable would likely DC 04/12 Patient much brighter today and more engaged in one-to-one discussion. Patient's seen with ?Serbian speaking staff. Patient reports that she's doing ?good? and denies any depression or SI. She reiterates that several months ago, she was depressed and suicidal but no longer and cannot explain why she said so and the emergency room. Patient denies any AVH. She feels that her medications help with depression. Personal Property Appraiser again discussed the consequences of drinking alcohol. She reports that she drinks simply because she loves drinking and not for any other reason. She agreed that it is damagingher body and that she plans to stop drinking going forward. Personal Property Appraiser discussed program for substance abuse however patient said that she rather take pills. Patient was started Accamprosate and she said she will remain on this for now. Personal Property Appraiser discussed patients liver labs and the risk of liver failure should she continue drinking; patient says she understand the consequences. Of course she's eating and drinking well. Plan is to return to Live with her boyfriend Steve with whom perinatal social worker contacted and the corroborates the plan. patients 12b is due; she is organized in speech and behavior. mood is good, denies depression and SI and is returning to live with boyfriend. Patient of course remains at high risk for relapse, but this is a chronic issue she's struggled with for years; she understands the risks and longer stay on unit will not change risk. Patient wants to discharge and she is not in imminent risk of harm to self or others. Patients' request is honored. Medical: Conjunctivitis Right Eye: started on Erythromycin ophthalmic ointment qid for 5 days Increased Thiamine to 300mg daily Ammonia level returned to WNL Liver injury As per Hospitalist DC summary 04/08/22: -On admission noted to have asterixis and tongue fasciculation, now resolved, continue to have hand tremors; [treated with] phenobarb protocol, thiamine and folic acid -hyperbilirubinemia- likely secondary to alcohol abuse..., abdominal ultrasound? showed hepatocellular disease and question cirrhosis, no hepatic lesion was noted, it also showed cholelithiasis without ?? acute cholecystitis, INR? 1.8/ albumin 3.0 likely due to alcoholic hepatitis and chronic liver? disease, vitamin K 5 mg daily x3 doses given recommend high-protein diet and abstinence from alcohol -thrombocytopenia- likely secondary to underlying liver disease in the setting of alcohol abuse, no acute bleed -alcoholic gastritis?continue PPI b.i.d and sucralfate , strongly recommend to abstain from alcohol no GI bleed noted follow CBC. -chronic normocytic anemia Time spent discussing smoking cessation with patient: 3 to 10 minutes Status at Discharge Functional status at discharge: independent ambulation Overall status at discharge: patient is back to baseline Time Spent with Patient Time attestation: Total time spent providing and/or coordinating discharge services: Time spent: Less than 30 minutes Discharge Plan Discharge Anticipated Discharge Date/Time: 04/13/22 13:00 Patient Disposition: Home, Self-Care Discharge Diagnosis: MDD, recurrent, moderate in remission [facility]errals: [facility]Other[facility] - 1 Week Gabby Villalta PA [Physician Audiology Technician] - 04/19/22 11:00 am (in office) Discharge Medications: New acamprosate 333 mg Tablet,Delayed Release (Dr/Ec) 333 mg PO TID 30 Days Qty: 90 0RF erythromycin 5 mg/gram (0.5 %) Ointment 1 cm ophthalmic-Right QID 5 Days Qty: 3.5 0RF omeprazole 40 mg Capsule,Delayed Release(Dr/Ec) 40 mg PO BID@0630,1630 30 Days Qty: 60 0RF Continued multivitamin Tablet 1 tab PO DAILY 30 Days Qty: 30 0RF acamprosate 333 mg tablet,delayed release (DR/EC) 333 mg PO TID 30 Days Qty: 90 0RF Changed sucralfate 1 gram tablet 1 g PO QID 30 Days Qty: 120 0RF thiamine HCl (vitamin B1) 250 mg tablet 250 mg PO DAILY 30 Days Qty: 30 0RF folic acid 1 mg tablet 1 mg PO DAILY 30 Days Qty: 30 0RF duloxetine 60 mg capsule,delayed release(DR/EC) 60 mg PO DAILY 30 Days Qty: 30 0RF Discontinued phenobarbital 15 mg Tablet 15 mg PO BID Qty: 1 0RF phenobarbital 15 mg Tablet 45 mg PO BID Qty: 1 0RF phenobarbital 15 mg Tablet 15 mg PO DAILY Qty: 1 0RF Discharge Orders: Discharge Order (Routine); Ordered 04/13/22 Ordered By: Brittnee Yarbrough Diet: Regular diet Activity on Discharge: As tolerated Stand Alone Forms: Patient Portal Discharge page, Community Support Print Language: Sinhala Care Plan Goals: Maintain mood and safe behaviors Take medications as prescribed Continue to pursue sobriety Practice coping skills Continue with outpatient providers and reach out to them as needed Health Concerns: Mood stability and behaviors Sobriety Liver Disease and possible liver cirrhosis Plan of Treatment: Follow up with your PCP, psychiatric provider and other outpatient providers regarding above concerns Take medications as prescribed Assessment: Risk assessment at time of discharge:? Patient was interviewed prior to discharge and found to be fully oriented and without any SI or HI. Patient has insight and demonstrates good judgment in terms of wanting to pursue treatment. Patient is not in imminent risk of harm to self or others and has a safety plan that includes presenting to the closest ER or calling 911 if feeling unsafe.? Patient has been observed closely by nursing and unit staff throughout admission; patient has not engaged in any behaviors that suggest dangerousness to self or others and has demonstrated appropriate behaviors and impulse control
[2022-04-13] MEDS: Sucralfate 1 GM TABLET PO ×2 (08:31→12:17)
[2022-04-13] MEDS: Folic Acid 1 MG TABLET PO (08:31)
[2022-04-13] MEDS: Multivitamin TABLET 1 TAB PO (08:31)
[2022-04-13] MEDS: Acamprosate Calcium 333 MG TABLET.DR PO ×2 (08:31→14:02)
[2022-04-13] MEDS: Omeprazole 40 MG CAPSULE.DR PO (08:31)
[2022-04-13] MEDS: Thiamine HCL 100 MG TABLET 200 MG PO (08:31)
[2022-04-13] MEDS: DULoxetine HCl 60 MG CAPSULE.DR PO (08:31)
[2022-04-13] MEDS: Erythromycin Base 0.5% Oph Oin 1 GM TUBE 1 CM EYE-RIGHT ×2 (08:33→12:17)
== END 2022-04-13 14:37 | disposition home or self-care (01) | DRG 751 ==
PROVIDERS: Psychiatry & Neurology Psychiatry; Admitting Provider Registered Nurse; Visit Provider Registered Nurse
DX: F33.2 Major depressive disorder, recurrent severe without psychotic features (principal); R45.851 Suicidal ideations; D69.59 Other secondary thrombocytopenia; F10.139 Alcohol abuse with withdrawal, unspecified; K21.9 Gastro-esophageal reflux disease without esophagitis; K29.20 Alcoholic gastritis without bleeding; K80.20 Calculus of gallbladder without cholecystitis without obstruction; K70.10 Alcoholic hepatitis without ascites; Z87.891 Personal history of nicotine dependence; Z79.899 Other long term (current) drug therapy
CPT/HCPCS: 36415; 80051; 80061; 80076; 82140; 82565; 82607; 82746; 83036; 83735; 84439; 84443; 84520; 85025

== ENCOUNTER 2022-04-25 17:10 | Emergency (ER) | payer MEDICAID, OTHER, SELFPAY ==
[2022-04-25 19:09] VITALS: BP 140/77; PULSE 97; RESP 16; TEMP 37.1; O2SAT 97; BMI 35.7
--- NOTE | 2022-04-25 19:11 | ED_ITS ---
HPI - General Adult General Chief complaint: General Medical <Aidee Bradford MD - Last Filed: 04/25/22 19:13> Stated complaint: left arm small incision bleeding <Aidee Bradford MD - Last Filed: 04/25/22 19:13> Time Seen by Provider: 04/25/22 19:54 <Aidee Bradford MD - Last Filed: 04/25/22 19:13> Source: patient <STEFAN Gray - Last Filed: 04/25/22 22:23> Mode of arrival: ambulatory <STEFAN Gray - Last Filed: 04/25/22 22:23> History of Present Illness HPI narrative: 47-year-old female with a past medical history ETOH abuse, depression, GERD, anxiety, hyperbilirubinemia, depression, thrombocytopenia, presenting to the ED complaining of bleeding from LUE deltoid IM injection site since this morning. Patient states she had a COVID 19 and flu vaccination about 3 months ago, and woke up with bleeding from site this morning. Denies being on anticoagulation. Denies lightheadedness, dizziness, CP/SOB, fever, chills, trauma/injury <STEFAN Gray - Last Filed: 04/25/22 22:23> Onset (ago): hour(s) <STEFAN Gray - Last Filed: 04/25/22 22:23> Related Data Home medications: Previous Rx's Medication Instructions Recorded acamprosate 333 mg tablet,delayed 333 mg PO TID 30 days #90 tabs 04/12/22 release acamprosate 333 mg tablet,delayed 333 mg PO TID 30 days #90 tabs 04/12/22 release duloxetine 60 mg capsule,delayed 60 mg PO DAILY 30 days #30 caps 04/12/22 release erythromycin 5 mg/gram (0.5 %) eye 1 cm ophthalmic-Right QID 5 days 04/12/22 ointment #3.5 grams folic acid 1 mg tablet 1 mg PO DAILY 30 days #30 tabs 04/12/22 multivitamin 1 tab PO DAILY 30 days #30 tabs 04/12/22 omeprazole 40 mg capsule,delayed 40 mg PO BID@0630,1630 30 days #60 04/12/22 release caps sucralfate 1 gram tablet 1 g PO QID 30 days #120 tabs 04/12/22 thiamine HCl (vitamin B1) 250 mg 250 mg PO DAILY 30 days #30 tabs 04/12/22 tablet <Aidee Bradford MD - Last Filed: 04/25/22 19:13> Allergies/adverse reactions: Allergies Allergy/AdvReac Type Severity Reaction Status Date / Time No Known Allergies Allergy Verified 04/07/22 13:26 <Aidee Bradford MD - Last Filed: 04/25/22 19:13> Review of Systems Review of Systems: Constitutional: No Weight loss, No Fever, No Chills ENT/Mouth: No Ear Pain, No Nasal Congestion, No sore throat, No Rhinorrhea, No Swallowing Difficulty Cardiovascular: No Chest Pain, No SOB Respiratory: No Cough, No Wheezing Gastrointestinal: No Nausea, No Vomiting, No Diarrhea, No Constipation, No Abdominal pain Genitourinary: No Dysuria, No Urinary Frequency, No Hematuria, No Flank Pain Musculoskeletal: No joint pain, No Myalgias, No Joint Swelling Skin: + Skin Lesions, No rash Neuro: No Weakness, No Numbness, No Paresthesias, No dizziness, No l ightheadedness <STEFAN Gray - Last Filed: 04/25/22 22:23> Yes all other systems are reviewed and are negative <STEFAN Gray - Last Filed: 04/25/22 22:23> Constitutional: Constitutional: Reports as per HPI <STEFAN Gray - Last Filed: 04/25/22 22:23> [facility] Past Medical History Attestation statement: The following information was validated with the patient. <STEFAN Gray - Last Filed: 04/25/22 22:23> Medical History: Medical History Alcohol abuse Depression Depression with anxiety GERD (gastroesophageal reflux disease) Hyperbilirubinemia MDD (major depressive disorder), recurrent severe, without psychosis Thrombocytopenia <Aidee Bradford MD - Last Filed: 04/25/22 19:13> Surgical History: Surgical History History of History of hernia repair <Aidee Bradford MD - Last Filed: 04/25/22 19:13> Family History Family History: Family History Other No family history of coronary artery disease <Aidee Bradford MD - Last Filed: 04/25/22 19:13> Social History Social History: Social History Household Members: Friend(s) Housing: House Do you presently have visiting nurse or other home services: No Alcohol intake: current Alcohol intake frequency: 3 or more drinks per day Patient Tobacco Use Status: Former Tobacco user Advance Directives: No Advance Directives Information Provided: No service: Yes Current occupational status: employed Sexual orientation: Decline to Answer <Aidee Bradford MD - Last Filed: 04/25/22 19:13> Physical Exam ED Vital Signs: Vital Signs - 24 hr 04/25/22 19:09 04/25/22 21:20 Temperature 98.7 F 98.6 F Pulse Rate 97 81 Respiratory Rate 16 16 Blood Pressure 140/77 H 135/63 Pulse Oximetry 97 97 Oxygen Delivery Method Room Air Room Air BMI result Body Mass Index 35.7 <Aidee Bradford MD - Last Filed: 04/25/22 19:13> Vital Signs - 24 hr 04/25/22 19:09 04/25/22 21:20 Temperature 98.7 F 98.6 F Pulse Rate 97 81 Respiratory Rate 16 16 Blood Pressure 140/77 H 135/63 Pulse Oximetry 97 97 Oxygen Delivery Method Room Air Room Air BMI result Body Mass Index 35.7 <STEFAN Gray - Last Filed: 04/25/22 22:23> Const General: cooperative, healthy appearing, comfortable, no acute distress, alert and awake <STEFAN Gray - Last Filed: 04/25/22 22:23> Orientation/consciousness: patient oriented x3 <STEFAN Gray - Last Filed: 04/25/22 22:23> Limitations: no limitations <STEFAN Gray - Last Filed: 04/25/22 22:23> HENMT Head: Yes normal to inspection and Yes atraumatic <STEFAN Gray - Last Filed: 04/25/22 22:23> Ears: hearing grossly normal bilaterally <Diane Ruiz PA - Last Filed: 04/25/22 22:23> General nose exam: Normal external nose present <Diane Ruiz PA - Last Filed: 04/25/22 22:23> Face and sinus: Yes normal facial exam <Diane Ruiz PA - Last Filed: 04/25/22 22:23> Eyes General: appearance normal, both eyes and all related structures <Diane Ruiz PA - Last Filed: 04/25/22 22:23> EOM: EOMs intact bilaterally <Diane Ruiz PA - Last Filed: 04/25/22 22:23> Neck Neck: Yes normal visual inspection and Yes no meningeal signs <Diane Ruiz PA - Last Filed: 04/25/22 22:23> Resp Effort & Inspection: normal respiratory effort and no respiratory distress <Diane Ruiz PA - Last Filed: 04/25/22 22:23> Cardio Rate: regular rate <Diane Ruiz PA - Last Filed: 04/25/22 22:23> Heart sounds: S1 normal heart sound present and S2 normal heart sound present <Diane Ruiz PA - Last Filed: 04/25/22 22:23> Peripheral pulses: Peripheral pulses 2+ throughout <Diane Ruiz PA - Last Filed: 04/25/22 22:23> GI Inspection: Yes normal to inspection <Diane Ruiz PA - Last Filed: 04/25/22 22:23> Skin Other: +small healing erythematous jer noted to L deltoid, no puncture wound, no active bleeding, no fluctuance/induration. Nontender. Neurovascular intact distally. <Diane Ruiz PA - Last Filed: 04/25/22 22:23> Rashes: no rashes <Diane Ruiz PA - Last Filed: 04/25/22 22:23> Neuro General: patient oriented x3, tone normal and no meningeal signs <Diane Ruiz PA - Last Filed: 04/25/22 22:23> Gait exam (Neuro): Normal gait present <Diane Ruiz PA - Last Filed: 04/25/22 22:23> Extrem General: Yes normal to inspection <STEFAN Gray - Last Filed: 04/25/22 22:23> Course Course Course Narrative: 47F p/w concerns about bleeding from her LUE but denies trauma, she states she has an appointment for upper endoscopy tomorrow. Otherwise, denies fevers, chills, SOB, chest pain. VS Reviewed GEN: NAD HEENT: scleral icterus, jaundice+ PULM, clear CVS: RRR LUE: no bleeding at present, no hematoma. - labs <Aidee Bradford MD - Last Filed: 04/25/22 19:13> 47F p/w concerns about bleeding from her LUE but denies trauma, she states she has an appointment for upper endoscopy tomorrow. Otherwise, denies fevers, chills, SOB, chest pain. VS Reviewed GEN: NAD HEENT: scleral icterus, jaundice+ PULM, clear CVS: RRR LUE: no bleeding at present, no hematoma. - labs -2222--no leukocytosis. H&H at patient's baseline. Platelets at patient's baseline, better than priors -coags at baseline, chronic transaminitis. No bleeding since patient's arrival to the ED. Results discussed with patient including worrisome signs and symptoms and strict return precautions, and when to return to the emergency department. They verbalized understanding and feel safe for discharge at this time. <STEFAN Gray - Last Filed: 04/25/22 22:23> Medical Decision Making Medical Decision Making MDM Narrative: 47-year-old female with a past medical history ETOH abuse, depression, GERD, anxiety, hyperbilirubinemia, depression, thrombocytopenia, presenting to [facility] ED complaining of bleeding from LUE deltoid IM injection site since this morning. On exam vital signs stable, NAD, nontoxic appearing, physical exam as above with small erythematous jer to left deltoid without active bleeding, no evidence of infection. No evidence of hematoma/internal bleeding, lower suspicion for anemia Labs ordered in triage <STEFAN Gray - Last Filed: 04/25/22 22:23> Differential Diagnoses: Differential diagnosis (As above) Differential Diagnosis: The differential diagnosis associated with the patient?s presentation includes: <STEFAN Gray - Last Filed: 04/25/22 22:23> Non-ED record review: Review of External (Non-ED) Record <STEFAN Gray - Last Filed: 04/25/22 22:23> Chronic conditions affecting care (e.g., diabetes, HTN): Chronic conditions affecting care (e.g., diabetes, HTN) (ETOH abuse, hyperbilirubinemia) <STEFAN Gray - Last Filed: 04/25/22 22:23> Discharge Plan Discharge Clinical Impression: Bleeding <Aidee Bradford MD - Last Filed: 04/25/22 19:13> Prescriptions: No Action acamprosate 333 mg Tablet,Delayed Release (Dr/Ec) 333 mg PO TID 30 Days Qty: 90 0RF erythromycin 5 mg/gram (0.5 %) Ointment 1 cm ophthalmic-Right QID 5 Days Qty: 3.5 0RF omeprazole 40 mg Capsule,Delayed Release(Dr/Ec) 40 mg PO BID@0630,1630 30 Days Qty: 60 0RF multivitamin Tablet 1 tab PO DAILY 30 Days Qty: 30 0RF sucralfate 1 gram tablet 1 g PO QID 30 Days Qty: 120 0RF thiamine HCl (vitamin B1) 250 mg tablet 250 mg PO DAILY 30 Days Qty: 30 0RF folic acid 1 mg tablet 1 mg PO DAILY 30 Days Qty: 30 0RF acamprosate 333 mg tablet,delayed release (DR/EC) 333 mg PO TID 30 Days Qty: 90 0RF duloxetine 60 mg capsule,delayed release(DR/EC) 60 mg PO DAILY 30 Days Qty: 30 0RF <Aidee Bradford MD - Last Filed: 04/25/22 19:13>
[2022-04-25 21:04] LABS: Eosinophils Absolute Auto 0.1 X10*3/uL (0.0-0.4); Imm Gran Abs Auto 0.02 X10*3/uL (0.00-0.03); Imm Gran Pct Auto 0.3 % (0.0-0.4); MANUAL DIFF FLAG SCAN; PLT CLUMP 1; SCAN SMEAR FLAG 1
[2022-04-25 21:06] LABS: Basophils Absolute Auto 0.1 X10*3/uL (0.0-0.2); Basophils Percent Auto 1.7 % (0-2); Eosinophils Percent Auto 2.2 % (0-4); Hematocrit 30.5 % (37.0-47.0); Hemoglobin 10.4 g/dl (12.0-16.0); Lymphocytes Absolute Auto 1.4 X10*3/uL (1.2-4.9); Mean Corpuscular HGB Conc 34.1 g/dl (31.0-35.0); Mean Corpuscular Hemoglobin 32.4 pg (27.0-33.0); Mean Platelet Volume 11.7 fL (9.4-12.3); Monocytes Absolute Auto 0.4 X10*3/uL (0.1-1.2); Monocytes Percent Auto 6.1 % (2-11); Neutrophils Absolute Auto 3.9 x10*3/uL (2.0-8.3); Neutrophils Percent Auto 65.7 % (45-73); Red Blood Count 3.21 X10*6/uL (4.20-5.50); Red Cell Distribution Width 15.2 % (11.0-16.0)
[2022-04-25 21:14] LABS: INTERNATIONAL NORM RATIO 1.8 (0.9-1.1)
[2022-04-25 21:20] VITALS: BP 135/63; PULSE 81; RESP 16; TEMP 37; O2SAT 97
[2022-04-25 21:29] LABS: Platelet Count 66 X10*3/uL (160-400)
[2022-04-25 21:30] LABS: SLIDE REVIEW VERIFIED
[2022-04-25 21:37] LABS: Alanine Aminotransferase 14 U/L (0-31); Albumin Level 2.7 g/dL (3.5-5.0); Alkaline Phosphatase 213 U/L (39-117); Anion Gap 9 (12-20); Aspartate Amino Transferase 88 U/L (5-31); Bilirubin Total 5.8 mg/dL (0.0-1.0); Blood Urea Nitrogen 3 mg/dL (9-16); Calcium 7.3 mg/dL (8.4-10.2); Carbon Dioxide 26 mmol/L (22-29); Chloride 110 mmol/L (96-108); Creatinine Clr Calc Pharmacy 139.6; Estimated Glomerular Filt Rate > 60; Glucose Random 99 mg/dL (60-115); Potassium 3.8 mmol/L (3.3-5.1); Sodium 141 mmol/L (135-145); Total Protein 7.2 g/dL (6.5-8.0)
--- NOTE | 2022-04-25 22:33 | PC.NURSE ---
Eval by PA, awaiting dc home, aware and agreeable to plan of care.
== END 2022-04-25 22:37 | disposition home or self-care (01) ==
PROVIDERS: Student in an Organized Health Care Education/Training Program; Emergency Provider Emergency Medicine
DX: M79.622 Pain in left upper arm (principal); Z79.899 Other long term (current) drug therapy
CPT/HCPCS: 36415; 80053; 85025; 85610; 99283